=== PATIENT | male | born 1975 | race Caucasian/White ===

== ENCOUNTER 2019-01-04 10:05 | Inpatient (IN) ==
--- NOTE | 2019-01-04 11:43 | Emergency Department Note ---
Disposition Clinical Impression: Diabetic foot infection Toe ulcer due to DM Qualifiers: Diabetes mellitus type: type 2 Laterality: right Non-pressure ulcer stage: with other severity Qualified Code(s): E11.621 - Type 2 diabetes mellitus with foot ulcer Disposition: Admitted As Inpatient Condition: Good Referrals: Javier Riggins MD [Non-Partnered Physician] - General Adult HPI - General Chief complaint: ED Wound/Laceration Stated complaint: right great toe problem Time Seen by Provider: 01/04/19 11:26 Source: patient Limitations: no limitations Nursing Notes Reviewed: Yes Vital Signs Reviewed: Yes - History of Present Illness HPI Narrative: Patient is a 43 yo M who presents to the emergency department with complaints of right great toe pain. He states he has been seeing Dr. Jules for management of his right great toe diabetic foot ulcer. He has been seen 9 days ago and was placed on clindamycin with improvement in his symptoms. This morning he woke up and had significant bleeding from his wound as well as weeping and treated for the area. He also notes increase in the pain and decreased sensation in that right great toe. He notes increase in the swelling it is great toe. He otherwise denies any fever, chills, chest pain, shortness of breath, nausea, vomiting, diarrhea, abdominal pain. Pain Scale: 2 - Related Data Home Medications Medication Instructions Recorded Confirmed FLUoxetine HCl [Prozac] 500 mg PO DAILY 05/12/16 05/12/16 Gabapentin 02/15/18 HumaLOG 02/25/18 Levemir 02/25/18 Naproxen 02/25/18 Victoza 2-Victor Hugo 02/25/18 Previous Rx's Medication Instructions Recorded Amoxicillin 875 mg PO BID 10 Days #20 tablet 02/25/18 Guaifenesin/Dm/Pseudoephedrine 1 each PO TID 7 Days #21 tablet 02/25/18 [Capmist Dm Tablet] Meclizine [Antivert] 12.5 mg PO TID 4 Days #12 tablet 02/25/18 Clindamycin [Cleocin] 150 mg PO Q6HR #40 capsule 12/26/18 Allergies Allergy/AdvReac Type Severity Reaction Status Date / Time citalopram [From Celexa] AdvReac Agitated Verified 01/04/19 10:26 red dye AdvReac Vomiting Verified 01/04/19 10:26 Review of Systems: ROS per history of present illness, all other systems reviewed and negative or normal. All systems ED: reviewed and negative except as stated. Review of Systems: As Per HPI Past Medical History - Past Medical History Medical history: Reports: diabetes Surgical history: Reports: non-contributory Psychiatric history: Reports: anxiety, depression - Social History Smoking Status: Current every day smoker Smokeless Tobacco Status: Yes Alcohol use: Reports: none Drug use: Reports: none Physical Exam General: Conversant. No apparent distress. Follow commands. Appears stated age. Obese. Neck: No JVD. Trachea midline. Neck supple. Eyes: PERRL. No scleral icterus. HENT: Normocephalic and atraumatic. Moist mucus membranes. Cardiovascular: Regular rate and rhythm. Normal S1 and S2. No murmurs appreciated. Normal capillary refill. Extremities well perfused with 2+ distal pulses bilaterally. No edema. Pulmonary: Normal and equal breath sounds bilaterally, anteriorly and posteriorly. No wheezes, rales, or rhonchi. Not in respiratory distress. Speaks in full sentences. Abdomen: Soft, nondistended, and tontender. No bruits or masses. No guarding. Neuro: Alert and oriented x3. No slurred speech. No focal deficits noted. Skin: No rashes noted on visualized skin. Musculoskeletal: right foot shows dorsal erythema and warmth to the level of the ankle joint, no crepitus. the right great toe shows swelling with skin sloughing on the plantar surface with bullous weeping to the medial side. There is subcutaneous bood without evidence of fluctuance, induration, or crepitus. Distal pulses 2+ bilaterally. Psych: Normal mood. Pleasant. Makes appropriate eye contact. - General Limitations: no limitations General appearance: alert, in no apparent distress Course Course Narrative: Patient seen and evaluated. Given abrupt change overnight in symptoms and appearance will get blood cultures, BMP, CBC, as well as XR of the foot given concern for worsening infection/ - Consultations Consultation #1: Discussed case with Dr. Collins who agrees to see the patient in consultation on admission. No requests at this point. Time: 14:00 Vital Signs Temperature 99.0 F 01/04/19 10:23 Pulse Rate 81 01/04/19 10:23 Respiratory Rate 18 01/04/19 10:23 Blood Pressure 123/77 01/04/19 10:23 O2 Sat by Pulse Oximetry 96 01/04/19 10:23 Temperature 99.0 F 01/04/19 10:23 Pulse Rate 73 01/04/19 14:12 Respiratory Rate 18 01/04/19 15:36 Blood Pressure 138/76 01/04/19 15:36 O2 Sat by Pulse Oximetry 96 01/04/19 14:12 Oxygen Delivery Oxygen Delivery Room Air Medical Decision Making - MDM Narrative Medical decision making narrative: 43-year-old male with diabetes completed by peripheral neuropathy who presents emergency Department with complaints of right great toe swelling, drainage and erythema of his foot. The patient does appear to have cellulitis which has at this point failed outpatient management following a 10 day course of clindamycin . Patient has no systemic symptoms of infection including fever, chills. He is afebrile here in the emergency department. Otherwise did obtain CBC, BMP, ESR and CRP. CBC does show leukocytosis with elevation of his CRP and ESR from previous emergency department visit. X-ray of his foot shows no evidence of soft tissue gas or bony abnormalities. Given the patient had a negative CT foot just prior to this do not believe he warrants further advanced imaging at this time to evaluate further for osteomyelitis. The patient was started on Vancomycin and cefepime with blood cultures obtained prior. His pain is well controlled. Did contact Dr. Collins, orthopedist who will consult on to see the patient in the hospital and evaluate for need for I&D. Discussed case with on- call hospitalist Dr. Castañeda who agrees with plan for admission and accepts the patient to the inpatient service. Patient agrees with and understands course of treatment plan including plan for admission. All questions answered. - Medical Records Medical records reviewed: Yes I reviewed the patient's medical records. - Lab Data Lab results reviewed: Yes I reviewed the patient's lab results. Result diagrams: 01/04/19 11:57 01/04/19 11:57 Lab Results 01/04/19 01/04/19 01/04/19 Range/Units 11:57 11:57 11:57 WBC 13.9 H (4.3-11.1) K/mcL RBC 5.48 (4.19-5.50) M/mcL Hgb 17.7 H (12.9-16.9) g/dL Hct 50.3 H (37.5-50.1) % MCV 91.8 (83.0-100.0) fL MCH 32.3 (28.0-33.3) pg MCHC 35.2 (31.6-35.5) g/dL RDW 12.6 (11.5-14.5) % Plt Count 143 (140-400) K/mcL MPV 11.8 (9.4-12.4) fL Immature Gran % 0.3 (0-4) % Seg Neutrophils % 73.4 % Lymphocytes % 9.9 % Monocytes % 10.6 % Eosinophils % 5.2 % Basophils % 0.6 % Neutrophils # 10.2 H (1.6-8.9) K/mcL Lymphocytes # 1.4 (0.6-4.6) K/mcL Monocytes # 1.5 H (0.0-1.3) K/mcL Eosinophils # 0.7 H (0.0-0.6) K/mcL Basophils # 0.1 (0.0-0.2) K/mcL ESR 22 H (0-10) mm/hr Sodium 134 L (136-145) mEq/L Potassium 3.9 (3.5-5.1) mEq/L Chloride 102 (98-107) mEq/L Carbon Dioxide 26 (23-29) mEq/L BUN 13 (6-20) mg/dL Creatinine 0.72 (0.70-1.30) mg/dL Est GFR ( Amer) > 60 (> 60) Est GFR (Non-Af Amer) > 60 (> 60) BUN/Creatinine Ratio 18 (6-26) Glucose 301 H (70-105) mg/dL Est Mean Plasma Glucose mg/dl Hemoglobin A1c ( - 5.6) % Calculated Osmolality 289 (280-300) Lactic Acid (0.5-2.2) mmol/L Calcium 9.0 (8.6-10.3) mg/dL C-Reactive Protein 42 H (Less than 10) mg/L 01/04/19 01/04/19 Range/Units 11:57 12:03 WBC (4.3-11.1) K/mcL RBC (4.19-5.50) M/mcL Hgb (12.9-16.9) g/dL Hct (37.5-50.1) % MCV (83.0-100.0) fL MCH (28.0-33.3) pg MCHC (31.6-35.5) g/dL RDW (11.5-14.5) % Plt Count (140-400) K/mcL MPV (9.4-12.4) fL Immature Gran % (0-4) % Seg Neutrophils % % Lymphocytes % % Monocytes % % Eosinophils % % Basophils % % Neutrophils # (1.6-8.9) K/mcL Lymphocytes # (0.6-4.6) K/mcL Monocytes # (0.0-1.3) K/mcL Eosinophils # (0.0-0.6) K/mcL Basophils # (0.0-0.2) K/mcL ESR (0-10) mm/hr Sodium (136-145) mEq/L Potassium (3.5-5.1) mEq/L Chloride (98-107) mEq/L Carbon Dioxide (23-29) mEq/L BUN (6-20) mg/dL Creatinine (0.70-1.30) mg/dL Est GFR ( Amer) (> 60) Est GFR (Non-Af Amer) (> 60) BUN/Creatinine Ratio (6-26) Glucose (70-105) mg/dL Est Mean Plasma Glucose 203 mg/dl Hemoglobin A1c 8.7 H ( - 5.6) % Calculated Osmolality (280-300) Lactic Acid 1.4 (0.5-2.2) mmol/L Calcium (8.6-10.3) mg/dL C-Reactive Protein (Less than 10) mg/L - Radiology Data Radiology results reviewed: Yes I reviewed the patient's radiology results. Foot X-Ray 01/04/19 11:41 IMPRESSION: 1. No acute abnormality. D/ / Chance Manzano MD / Chance Manzano MD Interpreting Provider: Chance Manzano MD
[2019-01-04] MEDS ORDERED: Cefepime HCl 2,000 MG in Water for inj. (sterile) 20 ML 20 ML IVP ONE (12:25)
[2019-01-04 12:31] LABS: BUN/Creatinine Ratio 18 (6-26); Blood Urea Nitrogen 13 mg/dL (6-20); C-Reactive Protein 42 mg/L (Less than 10); Carbon Dioxide 26 mEq/L (23-29); Chloride 102 mEq/L (98-107); Glucose 301 mg/dL (70-105); Osmolality,Calculated 289 (280-300); Potassium 3.9 mEq/L (3.5-5.1); Sodium 134 mEq/L (136-145); eGFR For Non-African Americans > 60 (> 60)
[2019-01-04 13:00] LABS: Basophils # 0.1 K/mcL (0.0-0.2); Basophils % 0.6 %; Eosinophils # 0.7 K/mcL (0.0-0.6); Eosinophils % 5.2 %; Hematocrit 50.3 % (37.5-50.1); Hemoglobin 17.7 g/dL (12.9-16.9); Immature Granulocytes % 0.3 % (0-4); Lymphocytes # 1.4 K/mcL (0.6-4.6); Lymphocytes % 9.9 %; Mean Corpuscular HGB Conc 35.2 g/dL (31.6-35.5); Mean Corpuscular Hemoglobin 32.3 pg (28.0-33.3); Mean Corpuscular Volume 91.8 fL (83.0-100.0); Mean Platelet Volume 11.8 fL (9.4-12.4); Monocytes # 1.5 K/mcL (0.0-1.3); Monocytes % 10.6 %; Neutrophils # 10.2 K/mcL (1.6-8.9); Platelet Count 143 K/mcL (140-400); Red Blood Count 5.48 M/mcL (4.19-5.50); Red Cell Distribution Width 12.6 % (11.5-14.5); Segmented Neutrophils % 73.4 %
--- NOTE | 2019-01-04 13:12 | Emergency Department Note ---
Disposition Clinical Impression: Toe ulcer due to DM, Diabetic foot infection Disposition: Admitted As Inpatient Condition: Fair Referrals: Javier Riggins MD [Primary Care Provider] - Forms: ED Satisfaction Letter General Adult HPI - General Chief complaint: ED Wound/Laceration Stated complaint: right great toe problem Time Seen by Provider: 01/04/19 11:26 Source: patient Limitations: no limitations - History of Present Illness Pain Scale: 2 - Related Data Home Medications Medication Instructions Recorded Confirmed FLUoxetine HCl [Prozac] 500 mg PO DAILY 05/12/16 05/12/16 Gabapentin 02/15/18 HumaLOG 02/25/18 Levemir 02/25/18 Naproxen 02/25/18 Victoza 2-Victor Hugo 02/25/18 Previous Rx's Medication Instructions Recorded Amoxicillin 875 mg PO BID 10 Days #20 tablet 02/25/18 Guaifenesin/Dm/Pseudoephedrine 1 each PO TID 7 Days #21 tablet 02/25/18 [Capmist Dm Tablet] Meclizine [Antivert] 12.5 mg PO TID 4 Days #12 tablet 02/25/18 Clindamycin [Cleocin] 150 mg PO Q6HR #40 capsule 12/26/18 Allergies Allergy/AdvReac Type Severity Reaction Status Date / Time citalopram [From Celexa] AdvReac Agitated Verified 01/04/19 10:26 red dye AdvReac Vomiting Verified 01/04/19 10:26 Past Medical History - Past Medical History Medical history: Reports: diabetes Surgical history: Reports: non-contributory Psychiatric history: Reports: anxiety, depression - Social History Smoking Status: Current every day smoker Smokeless Tobacco Status: Yes Alcohol use: Reports: none Drug use: Reports: none Physical Exam - General Limitations: no limitations General appearance: alert, in no apparent distress Course Vital Signs Temperature 99.0 F 01/04/19 10:23 Pulse Rate 81 01/04/19 10:23 Respiratory Rate 18 01/04/19 10:23 Blood Pressure 123/77 01/04/19 10:23 O2 Sat by Pulse Oximetry 96 01/04/19 10:23 Temperature 99.0 F 01/04/19 10:23 Pulse Rate 82 01/04/19 11:30 Respiratory Rate 16 01/04/19 11:30 Blood Pressure 131/77 01/04/19 11:30 O2 Sat by Pulse Oximetry 96 01/04/19 11:30 Oxygen Delivery Oxygen Delivery Room Air Medical Decision Making - Lab Data Result diagrams: 01/04/19 11:57 01/04/19 11:57 Lab Results 01/04/19 01/04/19 01/04/19 Range/Units 11:57 11:57 11:57 WBC 13.9 H (4.3-11.1) K/mcL RBC 5.48 (4.19-5.50) M/mcL Hgb 17.7 H (12.9-16.9) g/dL Hct 50.3 H (37.5-50.1) % MCV 91.8 (83.0-100.0) fL MCH 32.3 (28.0-33.3) pg MCHC 35.2 (31.6-35.5) g/dL RDW 12.6 (11.5-14.5) % Plt Count 143 (140-400) K/mcL MPV 11.8 (9.4-12.4) fL Immature Gran % 0.3 (0-4) % Seg Neutrophils % 73.4 % Lymphocytes % 9.9 % Monocytes % 10.6 % Eosinophils % 5.2 % Basophils % 0.6 % Neutrophils # 10.2 H (1.6-8.9) K/mcL Lymphocytes # 1.4 (0.6-4.6) K/mcL Monocytes # 1.5 H (0.0-1.3) K/mcL Eosinophils # 0.7 H (0.0-0.6) K/mcL Basophils # 0.1 (0.0-0.2) K/mcL ESR 22 H (0-10) mm/hr Sodium 134 L (136-145) mEq/L Potassium 3.9 (3.5-5.1) mEq/L Chloride 102 (98-107) mEq/L Carbon Dioxide 26 (23-29) mEq/L BUN 13 (6-20) mg/dL Creatinine 0.72 (0.70-1.30) mg/dL Est GFR ( Amer) > 60 (> 60) Est GFR (Non-Af Amer) > 60 (> 60) BUN/Creatinine Ratio 18 (6-26) Glucose 301 H (70-105) mg/dL Calculated Osmolality 289 (280-300) Lactic Acid (0.5-2.2) mmol/L Calcium 9.0 (8.6-10.3) mg/dL C-Reactive Protein 42 H (Less than 10) mg/L 01/04/19 Range/Units 11:57 WBC (4.3-11.1) K/mcL RBC (4.19-5.50) M/mcL Hgb (12.9-16.9) g/dL Hct (37.5-50.1) % MCV (83.0-100.0) fL MCH (28.0-33.3) pg MCHC (31.6-35.5) g/dL RDW (11.5-14.5) % Plt Count (140-400) K/mcL MPV (9.4-12.4) fL Immature Gran % (0-4) % Seg Neutrophils % % Lymphocytes % % Monocytes % % Eosinophils % % Basophils % % Neutrophils # (1.6-8.9) K/mcL Lymphocytes # (0.6-4.6) K/mcL Monocytes # (0.0-1.3) K/mcL Eosinophils # (0.0-0.6) K/mcL Basophils # (0.0-0.2) K/mcL ESR (0-10) mm/hr Sodium (136-145) mEq/L Potassium (3.5-5.1) mEq/L Chloride (98-107) mEq/L Carbon Dioxide (23-29) mEq/L BUN (6-20) mg/dL Creatinine (0.70-1.30) mg/dL Est GFR ( Amer) (> 60) Est GFR (Non-Af Amer) (> 60) BUN/Creatinine Ratio (6-26) Glucose (70-105) mg/dL Calculated Osmolality (280-300) Lactic Acid 1.4 (0.5-2.2) mmol/L Calcium (8.6-10.3) mg/dL C-Reactive Protein (Less than 10) mg/L Attestation Statement - Attestation Attestation: I have seen this patient with the resident physician, I have personally evaluated this patient. I had reviewed the chart and document dictation by the resident physician and aM in agreement with the information documented by the resident physician. Please see documentation by the resident physician for complete chart including past medical history, family medical history, review of systems, current history and physical and laboratory and imaging studies. I was present for all procedures, provided direct supervision for all proce dures, was present for the entirety of all procedures and provided direct guidance during the procedures. Please see documentation by the resident physician for any procedures performed. Patient presents emergency Department with chief complaint of right great toe problem. This patient was seen in the emergency department about 8 days ago, in fact by myself, for a diabetic toe infection, he underwent laboratory studies and a CT scan of his foot at that time which were unremarkable including sed rate CRP CT scan CBC basic metabolic profile. He was given IV clindamycin in the emergency department and discharged home on oral clindamycin and reports that he followed up with his obstetrics specialist and toe/metabolic specialist and was actually significantly improving, in fact states that yesterday his foot looked great, he states that when he woke up this morning he looked down in his foot and noticed that his right great toe with significant only swollen weeping with large bruising and blistering appearance to it, and he had return of redness to the top of his foot he states typically his foot hurts but now it feels almost like his great toe was asleep. He denies fevers or chills he denies any other acute concerns, he just completed clindamycin. On physical examination, his right great toe is significantly swollen, with ruptured blistering, with hemorrhagic blistering of the toe, extending from the plantar aspect of the great toe medially around the great toe, with weeping of serous fluid, with some mild orange tint to it, there is some very mild erythema on the dorsum of the foot, without circumferential erythema or swelling onto the plantar aspect of the foot. He is able to wiggle his toe, it is very mildly tender. The right great toe is significantly swollen compared to the left side. There is no associated lymphangitis there is no palpable crepitus Basic laboratory studies including CBC blood cultures and lactic acid basic metabolic profile sedimentation rate and CRP were ordered. CRP hand sedimentation rate are both significantly elevated since previous. X-ray revealed no acute bony pathology, no obvious soft tissue gas. Patient was given IV cefepime and IV vancomycin. Podiatry was consulted as I feel this patient likely will require surgical debridement of his toe. He has no evidence to suggest necrotizing fasciitis there has been no advancement of the swelling redness or bruising here in the emergency department during his evaluation here, however I am highly concerned about the appearance of his great toe in regards to acute diabetic foot infection
--- NOTE | 2019-01-04 14:28 | Internal Med History&Physical ---
Date of Encounter: 01/04/19 Time of Encounter: 14:19 Internal Medicine - H&P: HPI Chief complaint: Infected diabetic foot ulcer Admitted From: Emergency Dept History of present illness: Pawan Hutson is a 43 M w hx DM2 c/b neuropathy, morbid obesity, smoker, anx/dep, who p/w R great toe pain. Pain began overnight and is constant. He usually doesn't feel much in his feet due to neuropathy but noted tenderness and discomfort since yesterday. He does have a known R great toe ulcer for which he follows with local podiatry Dr Jules for wound care, and was seen in ED 9 days ago for infectious symptoms which improved on clindamycin. He took his last dose of clindamycin either yesterday or the day before. Says his home health RN wrapped his foot two days ago and it looked much better, no redness or swelling, and no discomfort. Currently, his pain is associated with increased bleeding from the toe ulcer but also fluid seeping out of the top of his toe also accompanied by blisters. He notes swelling and redness that extend up to the foot. He denies F/C/N/V/D, no CP or SOB. In the ED, pt HR 80, RR 18, SBP 120s, T'99.0. On exam has warmth and erythema on toe at site of foot extending to foot. Labs show WBC 14, Hct 50, Na 134, Glucose 300, lactate 1.4, CRP 42. An XR of his R foot was unremarkable for any abn including no osseous abn, and last week a CT of his foot showed only inflammatory changes consistent with cellulitis of his great toe. Podiatry was consulted and will follow the patient. Blood cultures were obtained. He was gi claudia dose of vanc and cefepime and admitted for further management. Past medical, surgical, social, and family histories reviewed and updated as below. Past Med Surg Social Fam HX - Past Medical History Medical history: diabetes Psychiatric history: anxiety, depression - Past Surgical History Surgical History: non-contributory Additional surgical history: deviated septum repaired. cyst removed from left fourth digit - Social History Smoking Status: Current every day smoker Smokeless Tobacco Status: Yes Alcohol use: none Drug use: none - Family History Father Adopted: No Living Status: Hx Family Cardiac Disorders: Yes Hx Family Respiratory Disorders: No Hx Family Cancer: Yes Hx Family GI Disorders: No Hx Family Endocrine Disorder: No Hx Family Neuromuscular Disorders: No Hx Family Neurologic Disorders: No Hx Family HEENT Disorders: No Hx Family Autoimmune Disorders: No Mother Adopted: No Living Status: Still Living Hx Family Cardiac Disorders: No Hx Family Respiratory Disorders: No Hx Family Cancer: Yes Hx Family GI Disorders: No Hx Family Endocrine Disorder: No Hx Family Neuromuscular Disorders: No Hx Family Neurologic Disorders: No Hx Family HEENT Disorders: No Hx Family Autoimmune Disorders: No Internal Medicine - H&P: Meds FLUoxetine HCl [Prozac] 500 mg PO DAILY 05/12/16 [History] Gabapentin 02/15/18 [History] Amoxicillin 875 mg PO BID 10 Days #20 tablet 02/25/18 [Rx] Guaifenesin/Dm/Pseudoephedrine [Capmist Dm Tablet] 1 each PO TID 7 Days #21 tablet 02/25/18 [Rx] HumaLOG 02/25/18 [History] Levemir 02/25/18 [History] Meclizine [Antivert] 12.5 mg PO TID 4 Days #12 tablet 02/25/18 [Rx] Naproxen 02/25/18 [History] Victoza 2-Victor Hugo 02/25/18 [History] Clindamycin [Cleocin] 150 mg PO Q6HR #40 capsule 12/26/18 [Rx] Allergy/AdvReac Type Severity Reaction Status Date / Time citalopram [From Celexa] AdvReac Agitated Verified 01/04/19 10:26 red dye AdvReac Vomiting Verified 01/04/19 10:26 All Systems PM: A 10-system review of systems was performed and is negative for pertinent findings except as documented above in the HPI. - Constitutional Vitals: Temp Pulse Resp BP Pulse Ox 99.0 F 73 18 120/77 96 01/04/19 10:23 01/04/19 14:12 01/04/19 14:12 01/04/19 14:12 01/04/19 14:12 Exam: General: NAD, good eye contact, morbidly obese, nontoxic, disheveled Head: Atraumatic, normocephalic. Face symmetric Eyes: EOMI, sclerae anicteric ENT: Mucous membranes moist. Trachea midline. Thoracic: No visible chest wall deformities. Normal breath sounds b/l, no wheezing or crackles. Cardio: Normal S1 and S2, regular rate and rhythm, no murmurs. Distant heart sounds. Abdomen: Soft, nontender, nondistended. Obese. Neuro: Awake, fully oriented. Good memory, concentration, attention. Speech fluent. CN II-XII grossly intact. Strength 5/5 in b/l UE and LE Extremities: Warm, well perfused. No clubbing, cyanosis. Skin: R great toe w inferior chronic ulceration, now with skin sloughing, fluctuance of medial and superior aspects of toe with bruising, also punctate areas of serosanguinous weeping scattered across dorsum of toe Internal Med - H&P Results - Labs CBC & Chem 7: 01/04/19 11:57 01/04/19 11:57 Labs: Short CBC 01/04/19 Range/Units 11:57 WBC 13.9 H (4.3-11.1) K/mcL Hgb 17.7 H (12.9-16.9) g/dL Hct 50.3 H (37.5-50.1) % Plt Count 143 (140-400) K/mcL Neutrophils # 10.2 H (1.6-8.9) K/mcL BMP 01/04/19 11:57 Sodium 134 L Potassium 3.9 Chloride 102 Carbon Dioxide 26 BUN 13 Creatinine 0.72 Glucose 301 H Calcium 9.0 - Impressions ITS Impressions Foot X-Ray 01/04/19 11:41 IMPRESSION: 1. No acute abnormality. D/ / Chance Manzano MD / Chance Manzano MD Interpreting Provider: Chance Manzano MD - Summary of Assessment and Plan Summary of Assessment and Plan: Pawan Hutson is a 43 M w hx DM2 c/b neuropathy, morbid obesity, smoker, anx/dep, chronic R great toe ulcer, who p/w R great toe pain and erythema extending proximally, leukocytosis, and elevated CRP, concerning for infected diabetic foot ulcer. Infected diabetic foot ulcer: just finished clindamycin monotherapy with worsening after initial improvement, concerning for inducible resistance to clindamycin. XR showing no osseous abn, CRP elevated only to 40, and this is relatively acute, and with negative CT last week, low suspicion for OM. - BCx x2 pending - continue empiric vanc/cefepime for now until source control - consider eventual de-escalation to keflex 500 qid and bactrim ds 2 tabs bid - podiatry consult, suspect will need I&D DM2 c/b neuropathy: w hyperglycemia, continue home levemir, use SSI Neuropathy: home gabapentin ORION: cpap qhs Morbid Obesity: BMI 44 Smoker: nicotine patch offered Anx/dep: home prozac PPx: lovenox FEN: ADA, no MIVF Lines: PIV Consults: Podiatry Code: Full Dispo: patient requires inpatient eval and management at this time. Anticipate 2-3 days. Will be homegoing
[2019-01-04] MEDS ORDERED: Ondansetron 4 MG/2 ML VIAL IVP PRN (14:38)
[2019-01-04] MEDS ORDERED: Nicotine 21 MG PATCH.TD24 TD PRN (15:04)
[2019-01-04] MEDS ORDERED: Gadolinium Contrast Agent (WT Based) IV PRN (16:04)
--- NOTE | 2019-01-04 16:08 | Podiatry Consult Note ---
Date of Encounter: 01/04/19 Time of Encounter: 14:55 Assessment and Plan (1) Diabetic foot infection Current visit: Yes Status: Acute Assessment: -Edema, erythema, and discoloration noted right hallux circumferentially. No obvious open ulcers. Erythema extends to dorsal aspect of foot, demarcation line placed to monitor. Serous drainage noted from toe and small areas of blisters noted dorsal aspect of toe. Callused area noted distal plantar aspect. Obvious fluid noted under skin. No fluctuance. Xerosis noted. -2/4 PT/DP pulse RLE -Cap refill less than 3 seconds -No pain with calf squeeze -WBC 13.9 -ESR 22, CRP 42 -Per patient's last Hgb A1c at [facility] was 11.7 -Right foot x-ray showed no evidence of abnormality -Rt CT of foot from 9 days ago showed subcutaneous soft tissue swelling, greater along the dorsal aspect of the foot and along the plantar aspect of the great toe. Findings most compatible with cellulitis. Definite ulceration is not identified. No soft tissue gas is seen. No focal fluid collections are identified. No CT evidence of osteomyelitis is identified. Thickening of the distal Achilles tendon and the central cord of the plantar aponeurosis. Correlation with clinical evidence of Achilles tendinopathy and plantar fascitis. -Patient does vape Plan: -Wound culture and anaerobic cultures obtained and left at bedside for nursing staff to label and send to lab -Site cleaned with sterile .9NS and pat dry -Painted with betadine -Covered with 4x4 dry gauze and Kerlix -ABIs and TCP O2 -MRI right foot -Hgb A1c -Discussed with patient that he may need an I&D of the right hallux and the potential for amputation of the great toe -Spoke with patient about the need for him to stop tobacco use (vape) and the importance of getting his A1c under control <7 and blood sugars <150 to aide in wound healing -Heel medix boots to lower extremities at all times while in bed, nursing to obtain from central History of Present Illness HPI: Mr. Hutson is a 43 year old male who presents to the emergency room due to right great toe pain, edema, and drainage. Patient does have a past medical history of diabetes with neuropathy, venous insufficiency, sleep apnea, and spinal stenosis. Patient states the pain started last night and he noticed drainage and bleeding early this am. Patient reports the wound started one year ago after a callus was pulled off. Since that time he has been treated in the [facility] at [facility] and recently moved to the area and started seeing Dr. Jules in the [facility] here at [place]. He reports one week ago he was evaluated by Dr. Jules and the symptoms of infection had improved. He reports he took his last dose of Clindamycicn yesterday. He also reports that [facility] evaluated him two days ago and the toe was a lot better and he denied any erythema, edema, or pain at that time. Patient denies any chest pain, shortness of breath, or calf pain. He denies any fever, chills, nausea, vomiting, or diarrhea. His temperature upon admission to ER was 99.0. A CBC was obtained and WBC 13.9. ESR 22 and CRP 42. X-ray of right foot showed no evidences of acute abnormality. CT last week showed subcutaneous soft tissue swelling, greater along the dorsal aspect of the foot and along the plantar aspect of the great toe. Findings most compatible with cellulitis. Definite ulceration is not identified. No soft tissue gas is seen. No focal fluid collections are identified. No CT evidence of osteomyelitis is identified. Thickening of the distal Achilles tendon and the central cord of the plantar aponeurosis. Correlation with clinical evidence of Achilles tendinopathy and plantar fascitis. Blood cultures were obtained. He was started on vacnomycin and cefepime while in the ER and admitted for further management. Podiatry was consulted due to the edema, erythema, and drainage from the right hallux. Patient does report he vapes and denies any alcohol or illicit drug use. Past Med Surg Social Fam HX - Past Medical History Medical history: diabetes Psychiatric history: anxiety, depression - Past Surgical History Surgical History: non-contributory Additional surgical history: deviated septum repaired. cyst removed from left fourth digit - Social History Smoking Status: Current every day smoker Smokeless Tobacco Status: Yes Alcohol use: none Drug use: none - Family History Father Adopted: No Living Status: Hx Family Cardiac Disorders: Yes Hx Family Respiratory Disorders: No Hx Family Cancer: Yes Hx Family GI Disorders: No Hx Family Endocrine Disorder: No Hx Family Neuromuscular Disorders: No Hx Family Neurologic Disorders: No Hx Family HEENT Disorders: No Hx Family Autoimmune Disorders: No Mother Adopted: No Living Status: Still Living Hx Family Cardiac Disorders: No Hx Family Respiratory Disorders: No Hx Family Cancer: Yes Hx Family GI Disorders: No Hx Family Endocrine Disorder: No Hx Family Neuromuscular Disorders: No Hx Family Neurologic Disorders: No Hx Family HEENT Disorders: No Hx Family Autoimmune Disorders: No Medications and Allergies FLUoxetine HCl [Prozac] 500 mg PO DAILY 05/12/16 [History] Gabapentin 02/15/18 [History] Guaifenesin/Dm/Pseudoephedrine [Capmist Dm Tablet] 1 each PO TID 7 Days #21 tablet 02/25/18 [Rx] HumaLOG 02/25/18 [History] Levemir 02/25/18 [History] Meclizine [Antivert] 12.5 mg PO TID 4 Days #12 tablet 02/25/18 [Rx] Naproxen 02/25/18 [History] RX: Amoxicillin 875 mg PO BID 10 Days #20 tablet 02/25/18 [Rx] Victoza 2-Victor Hugo 02/25/18 [History] RX: Clindamycin [Cleocin] 150 mg PO Q6HR #40 capsule 12/26/18 [Rx] Allergy/AdvReac Type Severity Reaction Status Date / Time citalopram [From Celexa] AdvReac Agitated Verified 01/04/19 10:26 red dye AdvReac Vomiting Verified 01/04/19 10:26 All Systems Reviewed: The remainder of the systems were reviewed and are negative Review of systems: As per HPI. - Constitutional Constitutional: no fever(s) - Cardiovascular Cardiovascular: no chest pain - Respiratory Respiratory: no dyspnea Physical Exam - Constitutional Vitals: Temp Pulse Resp BP Pulse Ox 99.0 F 73 18 138/76 96 01/04/19 10:23 01/04/19 14:12 01/04/19 15:36 01/04/19 15:36 01/04/19 14:12 Exam: Constitutional: Alert and oriented x 3, no acute distress noted, obese male Vascular: 1/4 PT/DP LLE, 2/4 PT/DP RLE, cap refill less than 3 seconds, skin warm from tibia to toes, no pain with calf squeeze bilaterally Neurological: Diminished protective sensation, normal plantar response, normal proprioception dorsiflexion/plantar flexion Dermatological: Edema, erythema, and discoloration noted right hallux circumferentially. No obvious open ulcers. Erythema extends to dorsal aspect of foot, demarcation line placed to monitor. Serous drainage noted from toe and small areas of blisters noted dorsal aspect of toe. Callused area noted distal plantar aspect. Obvious fluid noted under skin. No fluctuance. Xerosis noted. Musculoskeletal: 12/29 muscle strength and normal muscle tone - Expanded Lower Extremities Exam 1 - Edema, erythema, blisters with serous drainage 1 - Callused area distal aspect, discoloration, edema, and erythema noted Results - Labs Result Diagrams: 01/04/19 11:57 01/04/19 11:57 Labs: Abnormal lab results WBC 13.9 K/mcL (4.3-11.1) H 01/04/19 11:57 Hgb 17.7 g/dL (12.9-16.9) H 01/04/19 11:57 Hct 50.3 % (37.5-50.1) H 01/04/19 11:57 Neutrophils # 10.2 K/mcL (1.6-8.9) H 01/04/19 11:57 Monocytes # 1.5 K/mcL (0.0-1.3) H 01/04/19 11:57 Eosinophils # 0.7 K/mcL (0.0-0.6) H 01/04/19 11:57 ESR 22 mm/hr (0-10) H 01/04/19 11:57 Sodium 134 mEq/L (136-145) L 01/04/19 11:57 Glucose 301 mg/dL (70-105) H 01/04/19 11:57 C-Reactive Protein 42 mg/L (Less than 10) H 01/04/19 11:57 H & H 01/04/19 Range/Units 11:57 Hgb 17.7 H (12.9-16.9) g/dL Hct 50.3 H (37.5-50.1) % All other labs normal. - Diagnostic results Ankle/Foot x-ray: report reviewed (No acute abnormality ) Consult Discharge Plan - Plan Referrals: Javier Riggins MD [Primary Care Provider] -
[2019-01-04 16:29] LABS: Estimated Average Glucose 203 mg/dl; Hemoglobin A1C 8.7 %
[2019-01-04] MEDS ORDERED: Dextrose Gel 15 GM/37.5 ML TUBE PO PRN ×2 (17:24)
[2019-01-04] MEDS ORDERED: D5% in Water 1,000 ML IVC PRN (17:24)
[2019-01-04] MEDS ORDERED: *HR* Dextrose 50 % in Water (Syg) 50 ML SYRINGE IVP PRN (17:24)
[2019-01-04] MEDS ORDERED: Insulin LISPRO 300 UNITS/3 ML VIAL SQ SCH (21:00)
[2019-01-04] MEDS: Cefepime HCl 2,000 MG in Water for inj. (sterile) 20 ML 20 ML IVP SCH (23:57)
[2019-01-05] MEDS ORDERED: *HR* OxyCODONE Immed Rel 5 MG TABLET PO ONE (00:05)
[2019-01-05] MEDS ORDERED: Ibuprofen 600 MG TABLET PO ONE (00:08)
[2019-01-05] MEDS: Acetaminophen 325 MG TABLET PO PRN ×2 (02:47→11:32)
[2019-01-05 05:30] LABS: Hematocrit 45.7 % (37.5-50.1); Mean Corpuscular HGB Conc 35.2 g/dL (31.6-35.5); Mean Corpuscular Hemoglobin 32.4 pg (28.0-33.3); Mean Platelet Volume 11.5 fL (9.4-12.4); Platelet Count 115 K/mcL (140-400); Red Blood Count 4.97 M/mcL (4.19-5.50); Red Cell Distribution Width 13.1 % (11.5-14.5)
[2019-01-05 05:31] LABS: Hemoglobin 16.1 g/dL (12.9-16.9)
[2019-01-05 05:53] LABS: BUN/Creatinine Ratio 15 (6-26); Blood Urea Nitrogen 13 mg/dL (6-20); Calcium 8.6 mg/dL (8.6-10.3); Carbon Dioxide 25 mEq/L (23-29); Chloride 103 mEq/L (98-107); Glucose 290 mg/dL (70-105); Osmolality,Calculated 293 (280-300); Potassium 3.9 mEq/L (3.5-5.1); Sodium 136 mEq/L (136-145); Troponin I 0.06 ng/mL (< 0.04); eGFR For Non-African Americans > 60 (> 60)
[2019-01-05] MEDS: *HR* Enoxaparin 40 MG/0.4 ML SYRINGE SQ SCH (06:48)
[2019-01-05] MEDS ORDERED: Insulin LISPRO 300 UNITS/3 ML VIAL SQ SCH ×4 (07:30→21:00)
[2019-01-05] MEDS: Cefepime HCl 2,000 MG in Water for inj. (sterile) 20 ML 20 ML IVP SCH ×2 (08:36→16:37)
[2019-01-05 09:01] LABS: Acinetobacter baumannii by PCR Not Detected (Not Detect); Candida albicans by PCR Not Detected (Not Detect); Candida glabrata by PCR Not Detected (Not Detect); Candida krusei by PCR Not Detected (Not Detect); Candida parapsilosis by PCR Not Detected (Not Detect); Candida tropicalis by PCR Not Detected (Not Detect); Enterobacter cloacae Cmplx PCR Not Detected (Not Detect); Enterobacteriaceae by PCR Not Detected (Not Detect); Enterococcus by PCR Not Detected (Not Detect); Escherichia coli by PCR Not Detected (Not Detect); Klebsiella oxytoca by PCR Not Detected (Not Detect); Klebsiella pneumoniae by PCR Not Detected (Not Detect); Proteus by PCR Not Detected (Not Detect); Pseudomonas aeruginosa by PCR Not Detected (Not Detect); Serratia marcescens by PCR Not Detected (Not Detect); Staphylococcus aureus by PCR DETECTED (Not Detect); Streptococcus agalactiae(B)PCR Not Detected (Not Detect); Streptococcus by PCR Not Detected (Not Detect); Streptococcus pneumoniae PCR Not Detected (Not Detect); Streptococcus pyogenes (A) PCR Not Detected (Not Detect)
--- NOTE | 2019-01-05 09:01 | Internal Med Progress Note ---
<Karie Jovel N - Last Filed: 01/05/19 16:02> Hospitalist Progress Note - Encounter Date of Encounter: 01/05/19 Time of Encounter: 09:00 - Subjective Interval History: Mr. Hutson is a 43-year old male who was admitted to the hospital for management of worsening right great toe ulcer. Patient states that he has been dealing with this ulcer for approximately one year, but had development of new tenderness and discomfort over the last few days. On evaluation today, patient endorses continued pain in his right great toe, as well as along the inside of his right thigh. He denies any fevers, chills, or body aches. Nursing staff reports no acute overnight events. - Exam Vitals: Temp Pulse Resp BP Pulse Ox 97.3 F L 85 16 97/61 96 01/05/19 07:00 01/05/19 07:00 01/05/19 07:00 01/05/19 07:00 01/05/19 07:00 Exam: GENERAL: Well-developed, well-nourished adult male in no acute distress. HEENT: Atraumatic and normocephalic. CARDIOVASCULAR: Distant heart sounds secondary to body habitus. Regular rate and rhythm. S1 and S2 present. No murmurs, gallops, or rubs. RESPIRATORY: Clear to auscultation bilaterally. Chest rises and falls symmetrically without accessory muscle use. GASTROINTESTINAL: Abdomen is soft, nontender, nondistended. EXTREMITIES: No clubbing, cyanosis, or edema. Right foot is wrapped in clean dressings. Palpable muscle spasm along inside of right thigh. SKIN: Warm, dry, and intact. NEUROLOGIC: Alert and oriented x3. Patient is cooperative with exam and answers questions appropriately. No apparent focal deficits. PSYCHIATRIC: Appropriate mood and affect. - Assessment and Plan (1) Sepsis Current Visit: Yes Status: Acute Assessment and Plan: Patient initially met sepsis criteria with elevated temperature of 101.4F, HR 96bpm, leukocytosis with WBC 13.9, and identified infectious source of diabetic foot ulcer. Initial lactic acid was WNL at 1.4. Patient was not toxic-appearing or hypotensive, and was therefore not administered initial fluid boluses. Blood cultures were obtained, and patient was started on broad-spectrum antibiotic therapy with vancomycin and cefepime. Initial blood culture results are significant for growth of gram-positive cocci 1 set. Serology significant for detection of this Staph aureus by PCR. Plan: - Additional blood cultures obtained today 2 sets. Will repeat cultures with morning laboratory studies. - Repeat and trend daily CBC. - Continue broad-spectrum antibiotic therapy with vancomycin and zosyn. (2) Bacteremia Current Visit: Yes Status: Acute Assessment and Plan: Initial blood cultures significant for growth of gram-positive cocci 1 set. Serology is significant for detection of S. aureus via PCR. - Repeat blood cultures obtained and pending. Will obtain additional blood cultures with morning laboratory draw. - Continue antibiotic therapy with vancomycin and cefepime. (3) Diabetic foot infection Current Visit: Yes Status: Acute Assessment and Plan: Likely source of sepsis and bacteremia. MRI of the right foot was notable for shallow soft tissue ulcerations of the first toe, with no sinus tract or drainable fluid collection. First toe and dorsal foot or foot subcutaneous edema compatible with cellulitis was noted. Patient was evaluated by podiatry yesterday, and wound cultures were obtained. Per podiatry note this afternoon, and plan for a trip to [place] tomorrow for I&D of nonviable soft tissue and possible partial first ray amputation. - Continue broad-spectrum antibiotic therapy with vancomycin and cefepime. - Wound cultures pending. - Infectious disease consult placed for antibiotic recommendations. - Appreciate ongoing podiatry recommendations and assistance with management of this problem. (4) Diabetes mellitus type 2, insulin dependent Current Visit: Yes Status: Acute Assessment and Plan: History of T2DM with use of insulin at home. Hemoglobin A1c is elevated at 8.7. - Accuchecks ACHS. - Increase SSI to high-dose corrective ACHS. - Start basal insulin 15 units QHS. (5) Elevated troponin Current Visit: Yes Status: Acute Assessment and Plan: Elevated troponin of 0.06, with no change on repeat troponin. Patient denies any chest pain, shortness of breath, or other cardiac symptoms. - Continue telemetry monitoring and close clinical evaluation. (6) DVT prophylaxis Current Visit: Yes Status: Acute Assessment and Plan: - Lovenox 40mg SQ. - Time Spent with Patient Total time spent is greater than 50% in coordination of care (as documented) at patient's floor/unit and/or counseling patient: Internal Medicine: Result - Labs CBC & Chem 7: 01/05/19 05:00 01/05/19 05:00 Labs: Short CBC 01/04/19 01/05/19 Range/Units 11:57 05:00 WBC 13.9 H 14.3 H (4.3-11.1) K/mcL Hgb 17.7 H 16.1 D (12.9-16.9) g/dL Hct 50.3 H 45.7 (37.5-50.1) % Plt Count 143 115 L (140-400) K/mcL Neutrophils # 10.2 H (1.6-8.9) K/mcL BMP 01/04/19 01/05/19 11:57 05:00 Sodium 134 L 136 Potassium 3.9 3.9 Chloride 102 103 Carbon Dioxide 26 25 BUN 13 13 Creatinine 0.72 0.84 Glucose 301 H 290 H Calcium 9.0 8.6 Cardiac Enzymes 01/05/19 Range/Units 05:00 Troponin I 0.06 H* (< 0.04) ng/mL - Impressions Impressions Foot X-Ray 01/04/19 11:41 IMPRESSION: 1. No acute abnormality. D/ / Chance Manzano MD / Chance Manzano MD Interpreting Provider: Chance Manzano MD Foot MRI 01/04/19 16:04 IMPRESSION: 1. No osteomyelitis. 2. Shallow soft tissue ulcerations of the 1st toe. No sinus tract or drainable fluid collection. 1st toe and dorsal forefoot subcutaneous edema compatible with cellulitis. 3. Mild 1st MTP degenerative changes. 4. Moderate edema throughout the intrinsic musculature of the foot compatible with diabetic myopathy versus myositis versus early denervation. D/ / Abdon Patricia MD / Abdon Patricia MD Interpreting Provider: Abdon Patricia MD Consult Discharge Plan - Plan Referrals: Javier Riggins MD [Primary Care Provider] - <Marques Fletcher - Last Filed: 01/05/19 18:42> Hospitalist Progress Note - Encounter Date of Encounter: 01/05/19 - Exam Vitals: Temp Pulse Resp BP Pulse Ox 98.3 F 80 16 118/72 96 01/05/19 14:17 01/05/19 14:17 01/05/19 14:17 01/05/19 14:17 01/05/19 14:17 - Assessment and Plan (1) Diabetes Current Visit: Yes Status: Acute (2) Diabetic foot infection Current Visit: Yes Status: Acute (3) Sepsis Current Visit: Yes Status: Suspected (4) Bacteremia Current Visit: Yes Status: Acute (5) Diabetes mellitus type 2, insulin dependent Current Visit: Yes Status: Acute (6) Elevated troponin Current Visit: Yes Status: Acute (7) DVT prophylaxis Current Visit: Yes Status: Acute (8) Morbid obesity with BMI of 40.0-44.9, adult Current Visit: Yes Status: Chronic - Time Spent with Patient Total time spent is greater than 50% in coordination of care (as documented) at patient's floor/unit and/or counseling patient: Internal Medicine: Result - Labs CBC & Chem 7: 01/05/19 05:00 01/05/19 05:00 Labs: Short CBC 01/05/19 Range/Units 05:00 WBC 14.3 H (4.3-11.1) K/mcL Hgb 16.1 D (12.9-16.9) g/dL Hct 45.7 (37.5-50.1) % Plt Count 115 L (140-400) K/mcL BMP 01/05/19 05:00 Sodium 136 Potassium 3.9 Chloride 103 Carbon Dioxide 25 BUN 13 Creatinine 0.84 Glucose 290 H Calcium 8.6 Cardiac Enzymes 01/05/19 01/05/19 Range/Units 05:00 11:25 Troponin I 0.06 H* 0.06 H* (< 0.04) ng/mL - Impressions Impressions Foot MRI 01/04/19 16:04 IMPRESSION: 1. No osteomyelitis. 2. Shallow soft tissue ulcerations of the 1st toe. No sinus tract or drainable fluid collection. 1st toe and dorsal forefoot subcutaneous edema compatible with cellulitis. 3. Mild 1st MTP degenerative changes. 4. Moderate edema throughout the intrinsic musculature of the foot compatible with diabetic myopathy versus myositis versus early denervation. D/ / Abdon Patricia MD / Abdon Patricia MD Interpreting Provider: Abdon Patricia MD - Attending Attestation I examined this patient and my medical decision-making was reviewed with the Resident Physician on 01/05/19. I agree with the documented findings, disposition and treatment plan as described except to the extent set forth below. Mr Hutson is currently hospitalized for diabetic foot ulcer. He remains moderate to high risk due to potential for worsening clinical status. Mr Hutson is feeling OK. Pain is controlled at this time. No fever or chills. Tolerating IV abx. No GI issues. Exam alert Comfortable in bed Mucus membranes dry Heart distant and not tachy No wheeze abd soft Dressing intact Moves all extremities I/P 1. Diabetic foot ulcer - on IV abx. Awaiting further plans per podiatry 2. DM - fair control 3. Morbid obesity Further diagnoses and plan as above. <Karie Jovel N - Last Filed: 01/05/19 16:02> (1) Sepsis Qualifiers: Sepsis type: sepsis due to unspecified organism Qualified Code(s): A41.9 - Sepsis, unspecified organism <Marques Fletcher - Last Filed: 01/05/19 18:42> (1) Diabetes Qualifiers: Diabetes mellitus type: type 2 Diabetes mellitus half-way insulin use: with half-way use Diabetes mellitus complication detail: with foot ulcer Qualified Code(s): E11.621 - Type 2 diabetes mellitus with foot ulcer; L97.509 - Non- pressure chronic ulcer of other part of unspecified foot with unspecified severity; Z79.4 - [facility] (current) use of insulin (3) Sepsis Qualifiers: Sepsis type: methicillin susceptible Staphylococcus aureus Qualified Code(s): A41.01 - Sepsis due to Methicillin susceptible Staphylococcus aureus
[2019-01-05] MEDS: FLUoxetine 20 MG CAPSULE PO SCH (11:32)
[2019-01-05] MEDS: Gabapentin 300 MG CAPSULE PO SCH ×3 (11:33→22:45)
--- NOTE | 2019-01-05 14:11 | Podiatry Progress Note ---
Date of Encounter: 01/05/19 Time of Encounter: 13:15 - Assessment and Plan (1) Diabetic foot infection Current Visit: Yes Status: Acute Assessment: -Edema, erythema, and discoloration noted right hallux circumferentially worse since yesterday. No obvious open ulcers. Erythema extends to dorsal aspect of foot, does not extend past demarcation line. Serous drainage noted. Callused area noted distal plantar aspect. Obvious fluid noted under skin. No fluctuance. Xerosis noted. -2/4 PT/DP pulse RLE -Cap refill less than 3 seconds -No pain with calf squeeze -WBC 14.3 and trending up, temperature 101.4 during the night currently 98.4 -ESR 22, CRP 42 -Hgb A1c 8.7 -Right foot x-ray showed no evidence of abnormality -Right CT of foot from 9 days ago showed subcutaneous soft tissue swelling, greater along the dorsal aspect of the foot and along the plantar aspect of the great toe. Findings most compatible with cellulitis. Definite ulceration is not identified. No soft tissue gas is seen. No focal fluid collections are identified. No CT evidence of osteomyelitis is identified. Thickening of the distal Achilles tendon and the central cord of the plantar aponeurosis. Correlation with clinical evidence of Achilles tendinopathy and plantar fascitis. -Right MRI shows no evidence of osteomyelitis. It does show evidence of shal low soft tissue ulceration of the 1st toe. No sinus tract or drainable fluid collection. 1st toe and dorsal forefoot subcutaneous edema compatible with cellulitis. Mild 1st MTP degenerative changes. Moderate edema through the intrinsic musculature of the foot compatible with diabetic myopathy versus myositis versus early denervation. -ABIs preliminary are normal -TCP O2 preliminary are normal -Patient does vape -Blood culture preliminary gram positive cocci -Wound cultures preliminary Plan: -Site cleaned with sterile .9NS and pat dry -Painted with betadine -Covered with 4x4 dry gauze and Kerlix -Plan for I&D non viable soft tissue, possible partial 1st ray amputation, all associated procedures by Dr. Michaud tomorrow -Nature of the procedure, risks versus benefits, potential complications of surgery, and condition discussed. All questions and concerns addressed. Consent signed and placed in chart. -NPO after midnight -Spoke with patient about the need for him to stop tobacco use (vape) and the importance of getting his A1c under control <7 and blood sugars <150 to aide in wound healing -Heel medix boots to lower extremities at all times while in bed, nursing to obtain from central -Recommend ID, antibiotic recommendations greatly appreciated -Recommend something to help with agitation due to not smoking or nicotine patch Subjective Interval history: Patient is alert and oriented 3, sitting up in bed eating lunch, no acute distress noted. Patient denies any chest pain, shortness of breath, or calf pain. He does report pain right medial groin area worse with ambulation. Patient reports fever through the night, highest temperature 101.4. He denies any chills, nausea, vomiting, or diarrhea. Patient does report he is getting anxious and would like to go outside and smoke. Informed patient we are a nonsmoking facility and that I did not advise that he go out to smoke but I would recommend something for anxiety to help with agitation or nicotine patch. Objective - Vital Signs Vital Signs: Vital Signs Temp Pulse Resp BP Pulse Ox 01/05/19 10:50 98.4 F 71 18 107/63 96 01/05/19 07:00 97.3 F L 85 16 97/61 96 01/05/19 03:09 99.0 F 76 12 102/63 96 01/05/19 01:30 99.9 F H 74 18 92/60 95 01/05/19 00:02 101.4 F H 96 18 139/84 94 01/04/19 22:00 18 119/78 95 01/04/19 19:14 99.8 F H 92 18 119/78 95 01/04/19 15:36 18 138/76 01/04/19 14:12 73 18 120/77 96 Intake and Output 01/04/19 01/05/19 01/05/19 23:59 07:59 15:59 Intake Total 520 / 520 Output Total 0 / 0 Balance 520 / 520 Intake: IV Fluids 520 / 520 Maxipime 2,000 MG In Water for inj. (sterile) 20 ML @ 300 mls/ hr IVP Q8HR TENISHA Rx#:[id number] Vancocin 2,000 MG In 0.9 % 500 / 500 Sodium Chloride 500 ML @ 250 mls/hr IVPB Q12H TENISHA Rx#: [id number] Oral 0 / 0 Output: Urine 0 / 0 Other: Meal Breakfast Percent of Meal Consumed 100% # Voids 1 2 # Bowel Movements 0 Weight 181.437 kg Blood Glucose* 210 226 277 - Exam Exam: Constitutional: Alert and oriented x 3, no acute distress noted, obese male Vascular: 1/4 PT/DP LLE, 2/4 PT/DP RLE, cap refill less than 3 seconds, skin warm from tibia to toes, no pain with calf squeeze bilaterally Neurological: Diminished protective sensation, normal plantar response, normal proprioception dorsiflexion/plantar flexion Dermatological: Edema, erythema, and discoloration noted right hallux circumferentially worse since yesterday. No obvious open ulcers. Erythema ex tends to dorsal aspect of foot, does not extend past demarcation line. Serous drainage noted. Callused area noted distal plantar aspect. Obvious fluid noted under skin. No fluctuance. Xerosis noted. Musculoskeletal: 4/5 muscle strength and normal muscle tone - Lab Result Diagrams: 01/05/19 05:00 01/05/19 05:00 Labs: Abnormal lab results WBC 14.3 K/mcL (4.3-11.1) H 01/05/19 05:00 Plt Count 115 K/mcL (140-400) L 01/05/19 05:00 Neutrophils # 10.2 K/mcL (1.6-8.9) H 01/04/19 11:57 Monocytes # 1.5 K/mcL (0.0-1.3) H 01/04/19 11:57 Eosinophils # 0.7 K/mcL (0.0-0.6) H 01/04/19 11:57 ESR 22 mm/hr (0-10) H 01/04/19 11:57 Glucose 290 mg/dL (70-105) H 01/05/19 05:00 Hemoglobin A1c 8.7 % (-5.6) H 01/04/19 12:03 Troponin I 0.06 ng/mL (< 0.04) H* 01/05/19 11:25 C-Reactive Protein 42 mg/L (Less than 10) H 01/04/19 11:57 Staph aureus (PCR) DETECTED (Not Detect) A 01/04/19 11:57 Microbiology, Last 48 Hours 01/04/19 11:57 Blood Culture - Preliminary Peripheral Venipuncture Gram Positive Cocci 01/04/19 15:44 Wound Culture - Preliminary Right Great Toe Culture is incubating. 01/04/19 15:44 Anaerobic Culture - Preliminary Right Great Toe Culture is incubating. 01/04/19 11:57 Blood Culture - Preliminary Peripheral Venipuncture Culture is incubating and being continuously monitored for growth. Final report to follow. Consult Discharge Plan - Plan Referrals: Javier Riggins MD [Primary Care Provider] -
[2019-01-05] MEDS: Nicotine 21 MG PATCH.TD24 TD SCH (16:42)
[2019-01-05] MEDS: Insulin LISPRO 300 UNITS/3 ML VIAL SQ SCH (16:43)
[2019-01-05] MEDS ORDERED: Insulin DETEMIR 100 UNIT/ML X5UNITS SQ SCH (21:00)
[2019-01-06 01:02] LABS: Basophils % 0.4 %; Eosinophils # 0.5 K/mcL (0.0-0.6); Eosinophils % 4.3 %; Hematocrit 45.4 % (37.5-50.1); Hemoglobin 15.6 g/dL (12.9-16.9); Immature Granulocytes % 0.3 % (0-4); Lymphocytes # 1.6 K/mcL (0.6-4.6); Lymphocytes % 14.2 %; Mean Corpuscular HGB Conc 34.4 g/dL (31.6-35.5); Mean Corpuscular Hemoglobin 32.1 pg (28.0-33.3); Mean Corpuscular Volume 93.4 fL (83.0-100.0); Mean Platelet Volume 11.3 fL (9.4-12.4); Monocytes # 1.3 K/mcL (0.0-1.3); Monocytes % 11.5 %; Neutrophils # 7.8 K/mcL (1.6-8.9); Platelet Count 125 K/mcL (140-400); Red Blood Count 4.86 M/mcL (4.19-5.50); Red Cell Distribution Width 12.9 % (11.5-14.5); Segmented Neutrophils % 69.3 %
[2019-01-06 01:16] LABS: BUN/Creatinine Ratio 18 (6-26); Blood Urea Nitrogen 14 mg/dL (6-20); Calcium 8.5 mg/dL (8.6-10.3); Carbon Dioxide 25 mEq/L (23-29); Chloride 104 mEq/L (98-107); Glucose 306 mg/dL (70-105); Osmolality,Calculated 292 (280-300); Potassium 3.9 mEq/L (3.5-5.1); Sodium 135 mEq/L (136-145); eGFR For Non-African Americans > 60 (> 60)
[2019-01-06] MEDS: Cefepime HCl 2,000 MG in Water for inj. (sterile) 20 ML 20 ML IVP SCH ×3 (02:54→16:24)
[2019-01-06] MEDS: *HR* Enoxaparin 40 MG/0.4 ML SYRINGE SQ SCH (05:35)
[2019-01-06] MEDS: Insulin LISPRO 300 UNITS/3 ML VIAL SQ SCH ×4 (10:08→21:02)
[2019-01-06] MEDS: FLUoxetine 20 MG CAPSULE PO SCH (10:32)
[2019-01-06] MEDS: Gabapentin 300 MG CAPSULE PO SCH ×3 (10:32→21:02)
[2019-01-06] MEDS: Nicotine 21 MG PATCH.TD24 TD SCH (10:50)
--- NOTE | 2019-01-06 11:13 | Internal Med Progress Note ---
<Aysha Hussein - Last Filed: 01/06/19 11:09> Hospitalist Progress Note - Encounter Date of Encounter: 01/06/19 Time of Encounter: 11:09 - Subjective Interval History: Patient seen and examined at bedside. His is present. He is alert and oriented times 3. He reports fevers and chills overnight. His foot is still hurting. He is also complained of right upper thigh discomfort since when he presented on admission. He denies any shortness of breath, cough, chest pain. He is awaiting to go to the OR for debridement of the foot. Patient complains that he did not get very much sleep last night due to being woke up for e valuations. - Exam Vitals: Temp Pulse Resp BP Pulse Ox 98.4 F 71 16 124/76 96 01/06/19 10:03 01/06/19 10:03 01/06/19 10:03 01/06/19 10:03 01/06/19 10:03 Exam: Gen.: Vitals noted. No acute distress. AAOx3 HEENT: oropharynx clear, Normocephalic, atraumatic Neck: Supple. No adenopathy. Cardiac: RRR, no murmur, +S1/S2 Pulmonary: CTA bilaterally, no wheezes, rales or rhonchi, equal chest expansion Abdomen: soft, nontender, Bowel sounds noted, no guarding MSK: ROM intact, no joint swelling noted Extremities: no BLE edema, nontender calf, no cyanosis or clubbing, right foot is bandaged and clean. Mild Tenderness of right upper thigh Neuro: A&Ox3, moves all extremities, no focal deficits Psych: Appropriate mood and behavior - Assessment and Plan (1) Sepsis Current Visit: Yes Status: Suspected Assessment and Plan: Improving Patient initially presented meeting 3 SIRS sepsis criteria with temperature 101.4, HR 96, WBC 13.9. Patient was non-toxic or hypotensive and therefore do not require fluid boluses. -Etiology is right foot diabetic ulcer and possibly bacteremia -afebrile, WBC 11.2 (14.3) improving -hemodynamically stable -lactic acid 1.4 -01/04/2019 blood cultures growing Staphylococcus aureus 1/2 -01/05/2019 blood cultures pending -01/06/2019 blood cultures pending -01/04/2019 wound culture right great toe growing Staphylococcus aureus -01/04/2019 anaerobic cultures pending -right foot MRI showing cellulitis but not osteomyelitis Plan: -continue vancomycin and cefepime day 3 -will wait blood cultures -await wound culture results -will continue to monitor CBC (2) Diabetic foot infection Current Visit: Yes Status: Acute Assessment and Plan: Diabetic foot ulcer on right foot secondary to uncontrolled diabetes. Patient has since lost hundred 60 pounds and has improved his hemoglobin A1C from 16 to 8.7. -ESR 22, CRP 42 -right foot MRI showing no osteomyelitis. Shallow soft tissue ulcer of the 1st toe. No sinus tract or trainable fluid collection. 1st toe and dorsal forefoot subcutaneous edema compatible with cellulitis. Mild 1st MTP degenerative changes. Moderate edema throughout the intrinsic must culture of the foot compatible with diabetic myopathy versus myositis versus early denervation. -LACEY of bilateral lower extremities normal -TCPO2 bilateral lower extremities normal -01/04/2019 wound culture right great toe growing Staphylococcus aureus -01/04/2019 anaerobic cultures pending Plan: -podiatry following and planning to take patient to OR today for debridement of the foot and possible amputation if needed -continue vancomycin Day 3 -continue cefepime day 3 -infectious disease consulted for recommendations on antibiotics appreciated (3) Bacteremia Current Visit: Yes Status: Acute Assessment and Plan: Bacteremia on blood culture results. -Most likely secondary to diabetic foot ulcer -01/04/2019 blood cultures growing Staphylococcus aureus 1/2 -01/05/2019 blood cultures pending -01/06/2019 blood cultures pending Plan: -will continue to await the blood culture results -continue vancomycin Day 3 (4) Diabetes mellitus type 2, insulin dependent Current Visit: Yes Status: Acute Assessment and Plan: History of known diabetes taking insulin -glucose elevated -continue diabetic diet -Levemir 30 units -continue high dose sliding scale insulin -Accu checks (5) Elevated troponin Current Visit: Yes Status: Acute Assessment and Plan: Elevated troponin at admission. Patient denies chest pain. Troponin 0.06x2 Adynamic -will continue to monitor for chest pain (6) Diabetes Current Visit: Yes Status: Acute (7) Morbid obesity with BMI of 40.0-44.9, adult Current Visit: Yes Status: Chronic Assessment and Plan: Needs lifestyle change (8) DVT prophylaxis Current Visit: Yes Status: Acute Assessment and Plan: Lovenox SQ. Patient apparently been refusing (9) Thigh pain Current Visit: Yes Status: Acute Assessment and Plan: Patient reported that when he initially presented to the ED he did have some right upper thigh discomfort. It is not improved. -The right upper thigh does not appear swollen or erythematous. -Denies history of DVT -etiology may be musculoskeletal however consider DVT Plan: -will order and ultrasound of right lower extremity - Time Spent with Patient Total time spent is greater than 50% in coordination of care (as documented) at patient's floor/unit and/or counseling patient: Internal Medicine: Result - Labs CBC & Chem 7: 01/06/19 00:27 01/06/19 00:27 Labs: Short CBC 01/06/19 Range/Units 00:27 WBC 11.2 H (4.3-11.1) K/mcL Hgb 15.6 (12.9-16.9) g/dL Hct 45.4 (37.5-50.1) % Plt Count 125 L (140-400) K/mcL Neutrophils # 7.8 (1.6-8.9) K/mcL BMP 01/06/19 00:27 Sodium 135 L Potassium 3.9 Chloride 104 Carbon Dioxide 25 BUN 14 Creatinine 0.79 Glucose 306 H Calcium 8.5 L Cardiac Enzymes 01/05/19 Range/Units 11:25 Troponin I 0.06 H* (< 0.04) ng/mL Consult Discharge Plan - Plan Referrals: Javier Riggins MD [Primary Care Provider] - <Marques Fletcher - Last Filed: 01/06/19 18:09> Hospitalist Progress Note - Encounter Date of Encounter: 01/06/19 - Exam Vitals: Temp Pulse Resp BP Pulse Ox 99.4 F 83 16 128/81 95 01/06/19 17:41 01/06/19 17:41 01/06/19 17:41 01/06/19 17:41 01/06/19 17:41 - Assessment and Plan (1) Diabetic foot infection Current Visit: Yes Status: Acute (2) Sepsis Current Visit: Yes Status: Suspected (3) Bacteremia Current Visit: Yes Status: Acute (4) Diabetes mellitus type 2, insulin dependent Current Visit: Yes Status: Acute (5) Elevated troponin Current Visit: Yes Status: Acute (6) DVT prophylaxis Current Visit: Yes Status: Acute (7) Diabetes Current Visit: Yes Status: Acute (8) Morbid obesity with BMI of 40.0-44.9, adult Current Visit: Yes Status: Chronic (9) Thigh pain Current Visit: Yes Status: Acute - Time Spent with Patient Total time spent is greater than 50% in coordination of care (as documented) at patient's floor/unit and/or counseling patient: Internal Medicine: Result - Labs CBC & Chem 7: 01/06/19 00:27 01/06/19 00:27 Labs: Short CBC 01/06/19 Range/Units 00:27 WBC 11.2 H (4.3-11.1) K/mcL Hgb 15.6 (12.9-16.9) g/dL Hct 45.4 (37.5-50.1) % Plt Count 125 L (140-400) K/mcL Neutrophils # 7.8 (1.6-8.9) K/mcL BMP 01/06/19 00:27 Sodium 135 L Potassium 3.9 Chloride 104 Carbon Dioxide 25 BUN 14 Creatinine 0.79 Glucose 306 H Calcium 8.5 L - Attending Attestation I examined this patient and my medical decision-making was reviewed with the Resident Physician on 01/06/19. I agree with the documented findings, disposition and treatment plan as described except to the extent set forth below. Mr Hutson is currently admitted for diabetic foot infection. To go to OR today. He remains moderate to high risk due to potential for worsening clinical status. Mr Hutson is feeling OK. He is waiting to go to surgery. No fever or chills. No CP or SOB. Has a lot of drainage from toe. Exam alert Comfortable Mucus membranes dry Heart reg and not tachy No wheeze abd soft Dressing intact - drainage noted I/P 1. Diabetic foot ulcer - to go to OR today. 2. DM 3. Morbid obesity Further diagnoses and plan as above. 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 <Marques Fletcher - Last Filed: 01/06/19 18:09> (2) Sepsis Qualifiers: Sepsis type: methicillin susceptible Staphylococcus aureus Qualified Code(s): A41.01 - Sepsis due to Methicillin susceptible Staphylococcus aureus (7) Diabetes Qualifiers: Diabetes mellitus type: type 2 Diabetes mellitus penitentiary insulin use: with joint terminal attack controller use Diabetes mellitus complication detail: with foot ulcer Qualified Code(s): E11.621 - Type 2 diabetes mellitus with foot ulcer; L97.509 - Non- pressure chronic ulcer of other part of unspecified foot with unspecified severity; 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
--- NOTE | 2019-01-06 11:47 | Anesthesia Evaluation PreOp ---
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: Other (spinal stenosis) Other Medical History: Diabetes Type II, Other (obesity BMI=43.9, anxiety/depression) Anesthesia History: No Prior Anesthetic Complications, Past Anesthesia Alcohol Use: rarely Drug use: none Medications and Allergies FLUoxetine HCl [Fluoxetine HCl] 40 mg PO QAM 01/05/19 [History] Gabapentin 600 mg PO TID 01/05/19 [History] Hydrocodone/Acetaminophen [[place] 10-325 Tablet] 1 tab PO Q6H PRN 01/05/19 [History] Ibuprofen [Ibu] 800 mg PO Q8H PRN 01/05/19 [History] Insulin Glargine,Hum.rec.anlog [Basaglar Kwikpen U-100] 60 unit SQ HS 01/05/19 [History] Insulin LISPRO [Humalog Kwikpen U-100] 0 unit SQ TID 01/05/19 [History] Liraglutide [Victoza 3-[place]] 1.2 mg SQ BID 01/05/19 [History] Omeprazole [PriLOSEC] 20 mg PO DAILY 01/05/19 [History] Allergy/AdvReac Type Severity Reaction Status Date / Time citalopram [From Celexa] AdvReac Agitated Verified 01/04/19 10:26 red dye AdvReac Vomiting Verified 01/04/19 10:26 - Meds/Allergy Pre-op Review Medications Reviewed: Yes Allergies Reviewed: Yes Beta Blockers on Current Med List: No Anesthesia Results - Labs 01/06/19 00:27 01/06/19 00:27 Anesthesia Exam Vital Signs/O2 Sat/Glucose, Most Recent Temp Pulse Resp BP Pulse Ox 98.4 F 71 16 124/76 96 01/06/19 10:03 01/06/19 10:03 01/06/19 10:03 01/06/19 10:03 01/06/19 10:03 Blood Glucose* 235 Height: 6'8''/2.03m Weight: 400 lbs/181.4 kg NPO (# of Hours): 8 Pain Scale: 4 (back) Pain Scale Used: Numeric (1 - 10) - HEENT Pupil (Motor): EOMI Mallampati: III Teeth: Normal, Missing Oral Opening: Greater than 3 - COMFORT STATION SUPERVISOR LOC: Oriented COMFORT STATION SUPERVISOR Motor: Normal RUE, Normal LUE, Normal RLE, Normal LLE, Normal Face COMFORT STATION SUPERVISOR Sensory: Normal: RUE, LUE, Face, Deficit: RLE, LLE - Cardiac Rhythm: Regular Murmur: None - Pulmonary Breath Sounds: bilateral Clear Respiratory Effort: Symmetrical Anesthesia Assess/Plan ASA Score: 3 Level of consciousness: Cooperative, Oriented, Tranquil Anesthetic Plan: MAC Monitoring Plan: Standard Monitors
[2019-01-06] MEDS ORDERED: *HR* FentaNYL (PF) 100 MCG/2 ML VIAL ONE (12:23)
[2019-01-06] MEDS ORDERED: *HR* Propofol 200 MG/20 ML VIAL IVP ONE ×2 (12:24→13:30)
[2019-01-06] MEDS ORDERED: *HR* Midazolam HCl 2 MG/2 ML VIAL ONE (12:24)
[2019-01-06] MEDS ORDERED: Ondansetron 4 MG/2 ML VIAL ONE (12:25)
[2019-01-06] MEDS ORDERED: Lidocaine -MPF 2% 2 ML VIAL ONE (12:25)
[2019-01-06] MEDS ORDERED: Bupivacaine/EPI 1:200k 0.25%PF 10 ML VIAL INFILT ONE (13:02)
--- NOTE | 2019-01-06 14:19 | Orthopedic Operative Note ---
Date of procedure: 01/06/19 Pre-op diagnosis: Right 1st toe wound, abscess Post-op diagnosis: same Procedure: 01/06/19 14:08 1. Incision and drainage right 1st toe wound infection 2. Amputation right 1st toe Implants: None Complications: None Anesthesia: MAC, local Surgeon: Yinka Michaud Was there an dietary assistant present: No Estimated blood loss (cc): 5 Tourniquet Time (Minutes): 15 Specimen: Right 1st toe to pathology Condition: stable Disposition: floor Procedure in Detail: 01/06/19 14:09 INDICATIONS AND CONSENT Pawan Hutson is a 43-year-old male who presented with a chronic right first toe wound with infection. He failed multiple rounds of local wound care. He developed an apparent abscess at the plantar aspect of the toe as well as a recurrent wound at the dorsal aspect of the toe. MRI showed no evidence of osteomyelitis or abscess, although clinically there was evidence of soft tissue fluctuance at the plantar aspect of the toe with significant amount of non- viable soft tissue. Surgical intervention was warranted to debride all nonviable soft tissue for infection source control. This would include incision and drainage of abscess and all nonviable soft tissue at the toe. He was also consented for possible right first toe amputation if it was determined that the digit was not salvageable after removal of nonviable soft tissue. He agreed with the surgical plan. We discussed the above procedures in detail. This included a discussion on the indications, contraindications, and possible complications including but not limited to: infection, non-healing wound, pain, swelling, bleeding, blood clots, heart complications, nerve injury, tendon injury, vascular injury, loss of limb, loss of life, and need for further surgery. We also reviewed the expected post operative course, including a discussion on the non-weightbearing status after this procedure. He related understanding of our discussion regarding this surgery. All questions were answered to his satisfaction, and a proper written informed consent was obtained, signed, and placed in the chart. No guarantees were given, stated or implied, as to the outcome of this procedure. PROCEDURE IN DETAIL The patient was seen in the pre-operative holding area by Anesthesia, where he was consented for MAC with local block. The patient was then brought back to the operative suite and placed on the operating room table in the supine position. A sign-in was performed. MAC was then initiated per Anesthesia protocol. A well- padded pneumatic right ankle tourniquet was then placed. Next, the right lower leg was scrubbed, prepped, and draped in the usual aseptic manner. A [place] Time-Out was performed, and all parties in the room agreed. Next, an Esmarch was used to exsanguinate the right foot. The pneumatic ankle tourniquet was inflated to 250 mmHg. A total of 10 mL of 1% lidocaine plain and 10 mL of 0.5% Sensorcaine plain was injected in a modified ankle block technique of the right foot. A rongeur and 15 blade were used to debride all nonviable soft tissue at the dorsal and plantar aspect of the right first toe. It was determined that the digit was not salvageable and therefore was decided to amputate the digit. A 15 blade was used to perform a fishmouth incision at the level of the first metatarsophalangeal joint. The digit was then released of soft tissue at the joint capsule and the right first toe was removed. The toe was sent to pathology. The wound was irrigated with 3 L of normal saline using cystoscopy tubing. The tourniquet was then deflated and proper hyperemic response was noted to the foot. There was adequate bleeding within the surgical wound which was controlled using Bovie. The remaining soft tissue and bone appeared viable and healthy. The deep and subcutaneous tissue was reapproximated using 2-0 Vicryl and the skin was reapproximated under minimal tension using 2-0 nylon. A dry, sterile dressing was then applied, which consisted of: xeroform, 4x4's, Kerlix fluffs, ABDs, and Kerlix roll with ANTELMO wrap. Capillary refill time of the remaining toes on the right foot was also noted to be brisk at this time. A sign-out was performed. The patient tolerated anesthesia and the procedure well, and was transferred to PAC-U with vital signs stable and vascular status intact to the right lower extremity. Needle and sponge counts were correct X 2 at the end of the case. Dr. Yinka Michaud was present, scrubbed, and participated in all vital aspects of the procedure. After a brief stay in PAC-U, the patient will be admitted back to the floor for continued monitoring. We will follow up on pathology results. Patient will likely discharge on by mouth antibiotics as the and infectious source has been removed.
[2019-01-06] MEDS ORDERED: Dextrose Gel 15 GM/37.5 ML TUBE PO PRN ×2 (14:37)
[2019-01-06] MEDS ORDERED: Ondansetron 4 MG/2 ML VIAL IVP PRN (14:37)
[2019-01-06] MEDS ORDERED: *HR* Dextrose 50 % in Water (Syg) 50 ML SYRINGE IVP PRN (14:37)
[2019-01-06] MEDS ORDERED: D5% in Water 1,000 ML IVC PRN (14:37)
[2019-01-06] MEDS ORDERED: Gadolinium Contrast Agent (WT Based) IV PRN (14:37)
[2019-01-06] MEDS ORDERED: Acetaminophen 325 MG TABLET PO PRN (14:37)
[2019-01-06] MEDS ORDERED: Insulin DETEMIR 100 UNIT/ML X5UNITS SQ SCH ×2 (21:00)
[2019-01-06] MEDS: *HR* HYDROcodone/Acet 10/325 mg TABLET PO PRN (21:02)
[2019-01-07] MEDS: Cefepime HCl 2,000 MG in Water for inj. (sterile) 20 ML 20 ML IVP SCH ×3 (00:46→16:16)
[2019-01-07 01:47] LABS: Basophils # 0.1 K/mcL (0.0-0.2); Basophils % 0.8 %; Eosinophils # 0.4 K/mcL (0.0-0.6); Eosinophils % 4.6 %; Hematocrit 44.8 % (37.5-50.1); Hemoglobin 15.3 g/dL (12.9-16.9); Immature Granulocytes % 0.3 % (0-4); Lymphocytes # 1.7 K/mcL (0.6-4.6); Lymphocytes % 20.7 %; Mean Corpuscular HGB Conc 34.2 g/dL (31.6-35.5); Mean Corpuscular Hemoglobin 32.1 pg (28.0-33.3); Mean Corpuscular Volume 93.9 fL (83.0-100.0); Mean Platelet Volume 11.7 fL (9.4-12.4); Monocytes # 1.1 K/mcL (0.0-1.3); Monocytes % 13.6 %; Neutrophils # 4.8 K/mcL (1.6-8.9); Platelet Count 135 K/mcL (140-400); Red Blood Count 4.77 M/mcL (4.19-5.50); Red Cell Distribution Width 12.7 % (11.5-14.5)
[2019-01-07 02:06] LABS: BUN/Creatinine Ratio 14 (6-26); Blood Urea Nitrogen 12 mg/dL (6-20); Calcium 8.1 mg/dL (8.6-10.3); Carbon Dioxide 26 mEq/L (23-29); Chloride 104 mEq/L (98-107); Glucose 269 mg/dL (70-105); Osmolality,Calculated 291 (280-300); Potassium 3.7 mEq/L (3.5-5.1); Sodium 136 mEq/L (136-145); eGFR For Non-African Americans > 60 (> 60)
[2019-01-07] MEDS: *HR* Enoxaparin 40 MG/0.4 ML SYRINGE SQ SCH (06:24)
--- NOTE | 2019-01-07 08:10 | Internal Med Progress Note ---
Hospitalist Progress Note - Encounter Date of Encounter: 01/07/19 Time of Encounter: 10:30 - Subjective Interval History: Mr Hutson is currently admitted for infected foot ulcer. He is s/p amputation. He remains moderate to high risk due to potential for worsening clinical status. Mr Hutson is doing OK. Pain is controlled. No fever or chills. No CP or SOB. Awaiting final culture results. - Exam Vitals: Temp Pulse Resp BP Pulse Ox 97.8 F 70 16 125/79 94 01/07/19 06:38 01/07/19 06:38 01/07/19 06:38 01/07/19 06:38 01/07/19 06:38 Exam: General: Alert and oriented. Comfortable at this time. Skin: Normal color, no rash, no lesions. H: Normocephalic. EENT: EOMI, Mucus membranes moist. Cardiovascular: Normal S1 & S2, no murmurs Pulse regular. Lungs: Normal breath sounds, no wheezes or crackles. Abdomen: Soft, non-tender, Normal bowel sounds. Extremities: Dressing intact. Neurological: Normal cognition and motor skills. Pulses: radial pulses normal +2. Rest of the physical exam is non contributory - Assessment and Plan (1) Sepsis Current Visit: Yes Status: Suspected Assessment and Plan: Improving Patient initially presented meeting 3 SIRS sepsis criteria with temperature 101.4, HR 96, WBC 13.9. Patient was non-toxic or hypotensive and therefore do not require fluid boluses. -Etiology is right foot diabetic ulcer and possibly bacteremia -afebrile, WBC 11.2 (14.3) improving -hemodynamically stable -lactic acid 1.4 -01/04/2019 blood cultures growing Staphylococcus aureus 1/2 -01/05/2019 blood cultures pending -01/06/2019 blood cultures pending -01/04/2019 wound culture right great toe growing Staphylococcus aureus -01/04/2019 anaerobic cultures pending -right foot MRI showing cellulitis but not osteomyelitis Plan: -Continue Vanc and Cefipime Await final cultures and OR cultures (2) Diabetes Current Visit: Yes Status: Acute Assessment and Plan: Pt has hx of DM. Has had chronic ulcer of toe which has worsened. Taken to OR yesterday and amputated. Final cultures pending. Anticipate will be able to go home with PO abx (3) Bacteremia Current Visit: Yes Status: Acute Assessment and Plan: Bacteremia on blood culture results. -Most likely secondary to diabetic foot ulcer -01/04/2019 blood cultures growing Staphylococcus aureus 1/2 -01/05/2019 blood cultures pending -01/06/2019 blood cultures pending Plan: -will continue to await the blood culture results -continue vancomycin Day 4 (4) Diabetes mellitus type 2, insulin dependent Current Visit: Yes Status: Acute (5) DVT prophylaxis Current Visit: Yes Status: Acute Assessment and Plan: Lovenox SQ. Patient apparently been refusing (6) Morbid obesity with BMI of 40.0-44.9, adult Current Visit: Yes Status: Chronic Assessment and Plan: Needs lifestyle change - Time Spent with Patient Total time spent is greater than 50% in coordination of care (as documented) at patient's floor/unit and/or counseling patient: Internal Medicine: Result - Labs CBC & Chem 7: 01/07/19 00:33 01/07/19 09:42 Labs: Short CBC 01/07/19 Range/Units 00:33 WBC 8.0 (4.3-11.1) K/mcL Hgb 15.3 (12.9-16.9) g/dL Hct 44.8 (37.5-50.1) % Plt Count 135 L (140-400) K/mcL Neutrophils # 4.8 (1.6-8.9) K/mcL BMP 01/07/19 00:33 Sodium 136 Potassium 3.7 Chloride 104 Carbon Dioxide 26 BUN 12 Creatinine 0.85 Glucose 269 H Calcium 8.1 L Consult Discharge Plan - Plan Referrals: Javier Riggins MD [Primary Care Provider] - (1) Sepsis Qualifiers: Sepsis type: methicillin susceptible Staphylococcus aureus Qualified Code(s): A41.01 - Sepsis due to Methicillin susceptible Staphylococcus aureus (2) Diabetes Qualifiers: Diabetes mellitus type: type 2 Diabetes mellitus care home insulin use: with care home use Diabetes mellitus complication status: with skin complications Diabetes mellitus complication detail: with foot ulcer Qualified Code(s): E11.621 - Type 2 diabetes mellitus with foot ulcer; L97.509 - Non-pressure chronic ulcer of other part of unspecified foot with unspecified severity; Z79.4 - custodial (current) use of insulin
[2019-01-07] MEDS: Insulin LISPRO 300 UNITS/3 ML VIAL SQ SCH ×4 (09:29→20:59)
[2019-01-07] MEDS: FLUoxetine 20 MG CAPSULE PO SCH (09:31)
[2019-01-07] MEDS: Gabapentin 300 MG CAPSULE PO SCH ×3 (09:31→20:59)
[2019-01-07] MEDS: Nicotine 21 MG PATCH.TD24 TD SCH (09:32)
--- NOTE | 2019-01-07 09:55 | Podiatry Progress Note ---
Date of Encounter: 01/07/19 Time of Encounter: 09:52 - Assessment and Plan (1) Toe ulcer due to DM Current Visit: Yes Status: Acute 1. Patient progressing well POD 1 s/p right 1st toe I&D with amputation of the toe. Leukocytosis improved. WBAT in surgical shoe with heel touch. Will get orthowedge shoe before discharge. Rest and elevation recommended. Will likely be able to discharge with PO antibiotics. Dressing to be changed tomorrow. Will follow up on culture sensitivities for antibiotic recommendations. Pathology specimen was sent of the 1st toe. Qualifiers: Diabetes mellitus type: type 2 Laterality: right Non-pressure ulcer stage: with fat layer exposed Qualified Code(s): E11.621 - Type 2 diabetes mellitus with foot ulcer; L97.512 - Non-pressure chronic ulcer of other part of right foot with fat layer exposed Subjective Principal diagnosis: right 1st toe infection Interval history: Patient progressing well POD 1 s/p right 1st toe I&D with toe amputation. He reports some shooting "phantom" pain in the right foot. He denies n/v/f/c. He has questions regarding shoe gear that he will need once the surgical wound heals. Objective - Vital Signs Vital Signs: Vital Signs Temp Pulse Resp BP Pulse Ox 01/07/19 06:38 97.8 F 70 16 125/79 94 01/07/19 03:17 98.2 F 65 17 120/72 96 01/06/19 22:59 98.2 F 71 15 123/76 95 01/06/19 21:52 16 95 01/06/19 19:04 98.9 F 76 15 121/76 93 01/06/19 17:41 99.4 F 83 16 128/81 95 01/06/19 16:42 98.3 F 76 16 114/73 95 01/06/19 15:40 98.8 F 72 16 135/84 97 01/06/19 15:10 97.6 F 71 16 142/82 96 01/06/19 14:40 98.7 F 71 16 121/74 96 01/06/19 10:03 98.4 F 71 16 124/76 96 Intake and Output 01/06/19 01/07/19 01/07/19 23:59 07:59 15:59 Intake Total 760 / 760 520 / 520 120 / 120 Output Total 1000 / 1000 775 / 775 Balance -240 / -240 -255 / -255 120 / 120 Intake: IV Fluids 520 / 520 520 / 520 Maxipime 2,000 MG In Water for inj. (sterile) 20 ML @ 300 mls/ hr IVP Q8HR TENISHA Rx#:[id number] Vancocin 1,750 MG In 0.9 % 500 / 500 500 / 500 Sodium Chloride 500 ML @ 333.3 mls/hr IVPB Q8H TENISHA Rx#: [id number] Oral 240 / 240 0 / 0 120 / 120 Output: Urine 1000 / 1000 775 / 775 Other: Meal Dinner Breakfast Percent of Meal Consumed 30% 100% # Voids 1 Blood Glucose* 271 190 - Exam Exam: Alert, oriented x3, no acute distress, obese. Dermatology: Right foot dressing intact. No streaking erythema up the leg. No strikethrough. Vascular: capillary refill brisk to remaining digits of right foot. Musculoskeletal: No pain with manual compression of calf. Able to move remaining toes. Neuro: Sensations diminished to light touch bilateral lower extremity. - Lab Result Diagrams: 01/07/19 00:33 01/07/19 00:33 Labs: Abnormal lab results Plt Count 135 K/mcL (140-400) L 01/07/19 00:33 ESR 22 mm/hr (0-10) H 01/04/19 11:57 Glucose 269 mg/dL (70-105) H 01/07/19 00:33 POC Glucose 280 mg/dL (70-99) H 01/06/19 05:08 Hemoglobin A1c 8.7 % (-5.6) H 01/04/19 12:03 Calcium 8.1 mg/dL (8.6-10.3) L 01/07/19 00:33 Troponin I 0.06 ng/mL (< 0.04) H* 01/05/19 11:25 C-Reactive Protein 42 mg/L (Less than 10) H 01/04/19 11:57 Staph aureus (PCR) DETECTED (Not Detect) A 01/04/19 11:57 Microbiology, Last 48 Hours 01/04/19 11:57 Blood Culture - Preliminary Peripheral Venipuncture Staphylococcus aureus 01/04/19 15:44 Wound Culture - Preliminary Right Great Toe Staphylococcus aureus 01/06/19 00:27 Blood Culture - Preliminary Peripheral Venipuncture Culture is incubating and being continuously monitored for growth. Final report to follow. 01/06/19 00:27 Blood Culture - Preliminary Peripheral Venipuncture Culture is incubating and being continuously monitored for growth. Final report to follow. 01/05/19 15:56 Blood Culture - Preliminary Peripheral Venipuncture Culture is incubating and being continuously monitored for growth. Final report to follow. 01/05/19 15:50 Blood Culture - Preliminary Peripheral Venipuncture Culture is incubating and being continuously monitored for growth. Final report to follow. Consult Discharge Plan - Plan Referrals: Javier Riggins MD [Primary Care Provider] -
[2019-01-07 10:20] LABS: BUN/Creatinine Ratio 11 (6-26); Blood Urea Nitrogen 11 mg/dL (6-20); Vancomycin,Trough 14 mcg/mL (5-10); eGFR For Non-African Americans > 60 (> 60)
[2019-01-07] MEDS: Nystatin Cream 15 GM TUBE TP SCH ×2 (13:54→21:00)
[2019-01-07] MEDS: Insulin DETEMIR 100 UNIT/ML X5UNITS SQ SCH (20:59)
[2019-01-07] MEDS: *HR* HYDROcodone/Acet 10/325 mg TABLET PO PRN (20:59)
[2019-01-07] MEDS ORDERED: NON-FORMULARY MEDICATION 1 EACH EACH (Insulin Glargine,Hum.Rec.Anlog [Basaglar Kwikpen U-1 SQ SCH (21:00)
[2019-01-08] MEDS: Cefepime HCl 2,000 MG in Water for inj. (sterile) 20 ML 20 ML IVP SCH ×3 (00:13→15:36)
[2019-01-08] MEDS: *HR* Enoxaparin 40 MG/0.4 ML SYRINGE SQ SCH (05:34)
[2019-01-08 06:40] LABS: Hematocrit 43.3 % (37.5-50.1); Hemoglobin 15.5 g/dL (12.9-16.9); Mean Corpuscular HGB Conc 35.8 g/dL (31.6-35.5); Mean Corpuscular Hemoglobin 32.6 pg (28.0-33.3); Mean Corpuscular Volume 91.2 fL (83.0-100.0); Mean Platelet Volume 10.9 fL (9.4-12.4); Platelet Count 150 K/mcL (140-400); Red Blood Count 4.75 M/mcL (4.19-5.50); Red Cell Distribution Width 12.8 % (11.5-14.5)
[2019-01-08 07:01] LABS: BUN/Creatinine Ratio 13 (6-26); Blood Urea Nitrogen 10 mg/dL (6-20); Calcium 8.4 mg/dL (8.6-10.3); Carbon Dioxide 28 mEq/L (23-29); Chloride 105 mEq/L (98-107); Glucose 170 mg/dL (70-105); Osmolality,Calculated 289 (280-300); Potassium 3.4 mEq/L (3.5-5.1); Sodium 138 mEq/L (136-145); eGFR For Non-African Americans > 60 (> 60)
[2019-01-08] MEDS: Insulin LISPRO 300 UNITS/3 ML VIAL SQ SCH ×4 (08:16→20:46)
[2019-01-08] MEDS: Nicotine 21 MG PATCH.TD24 TD SCH (08:17)
[2019-01-08] MEDS: Gabapentin 300 MG CAPSULE PO SCH ×3 (08:17→20:44)
[2019-01-08] MEDS: FLUoxetine 20 MG CAPSULE PO SCH (08:19)
[2019-01-08] MEDS: Nystatin Cream 15 GM TUBE TP SCH ×2 (08:23→20:45)
--- NOTE | 2019-01-08 08:41 | Electrocardiograph Report ---
[address] [address] Test Date: 2019-01-05 Pat Name: Pawan Hutson Department: 115 Room: 3A35 Gender: M Author: : 1975 Requested By: Karie Jovel Order Number: [id number] Reading MD: Abdon Willingham Measurements Intervals [place] Rate: 73 P: 50 WI: 191 QRS: 31 QRSD: 92 T: 31 QT: 388 QTc: 413 Interpretive Statements SINUS RHYTHM LOW QRS VOLTAGE IN PRECORDIAL LEADS Electronically Signed On 01-08-2019 8:39:38 EDT by Abdon Willingham
--- NOTE | 2019-01-08 08:42 | Internal Med Progress Note ---
<Karie Jovel N - Last Filed: 01/08/19 16:56> Hospitalist Progress Note - Encounter Date of Encounter: 01/08/19 Time of Encounter: 08:42 - Subjective Interval History: Patient was seen and evaluated at the bedside. Over the weekend, he underwent indication of the right great toe. Patient is in good spirits about this, and st ates that he understands that it was necessary. He denies any complaints or concerns this morning, and states that he is eager to return home. He denies any fevers, chills, body aches, worsening foot pain, or increased erythema. Nursing staff reports no acute overnight events. - Exam Vitals: Temp Pulse Resp BP Pulse Ox 98.1 F 68 17 122/79 97 01/08/19 07:19 01/08/19 07:19 01/08/19 07:19 01/08/19 07:19 01/08/19 07:19 Exam: GENERAL: Well-developed, well-nourished obese adult male in no acute distress. HEENT: Atraumatic and normocephalic. CARDIOVASCULAR: Regular rate and rhythm. S1 and S2 present. Distant heart sounds secondary to body habitus. RESPIRATORY: Clear to auscultation bilaterally. Chest rises and falls symmetrically without accessory muscle use. GASTROINTESTINAL: Abdomen is soft, nontender, nondistended. EXTREMITIES: No clubbing, cyanosis, or edema. Right lower extremity bandages are clean, with surgical absence of right great toe. SKIN: Warm, dry, and intact. NEUROLOGIC: Alert and oriented x3. Patient is cooperative with exam and answers questions appropriately. No apparent focal deficits. PSYCHIATRIC: Appropriate mood and affect. - Assessment and Plan (1) Diabetic foot infection Current Visit: Yes Status: Acute Assessment and Plan: Likely source of initial sepsis and bacteremia. MRI of the right foot was notable for shallow soft tissue ulcerations of the fi rst toe, with no sinus tract or drainable fluid collection. First toe and dorsal foot or foot subcutaneous edema compatible with cellulitis was noted. Patient was evaluated by podiatry yesterday, and wound cultures were obtained. Patient was taken to the OR by podiatry over the weekend, with amputation of the right big toe. Preoperative wound culture is significant for growth of MRSA. Intraoperative pathology specimen was obtained; results pending. - Continue antibiotic therapy with vancomycin; discontinue cefepime. - Intraoperative pathology pending. - Infectious disease consult placed. - Appreciate ongoing podiatry and infectious disease recommendations and assistance with management of this problem. (2) Bacteremia Current Visit: Yes Status: Acute Assessment and Plan: Initial blood cultures significant for growth of gram-positive cocci 1 set. Serology is significant for detection of S. aureus via PCR, and initial wound culture demonstrated presence of MRSA. Repeat blood cultures are negative thus far for bacteremia. - Repeat blood cultures pending. - Continue antibiotic therapy with vancomycin; currently day 5 of therapy. - Transthoracic echocardiogram pending in light of MRSA bacteremia. - Further management per ID recommendations. (3) Sepsis Current Visit: Yes Status: Suspected Assessment and Plan: Improving. Patient initially met sepsis criteria with elevated temperature of 101.4F, HR 96bpm, leukocytosis with WBC 13.9, and identified infectious source of diabetic foot ulcer. Initial lactic acid was WNL at 1.4. Patient was not toxic-appearing or hypotensive, and was therefore not administered initial fluid boluses. Blood cultures were obtained, and patient was started on broad-spectrum antibiotic therapy with vancomycin and cefepime. Initial blood culture results are significant for growth of gram-positive cocci 1 set. Serology significant for detection of this Staph aureus by PCR. Over the weekend, patient has remained afebrile, with continued improvement in WBC count. Plan: - Repeat blood cultures pending. - Repeat and trend daily CBC. - Continue vancomycin. Appreciate infectious disease recommendations. (4) Diabetes mellitus type 2, insulin dependent Current Visit: Yes Status: Acute Assessment and Plan: History of T2DM with use of insulin at home. Hemoglobin A1c is elevated at 8.7. - Accuchecks ACHS. - Increase SSI to high-dose corrective ACHS. - Continue basal insulin 45 units QHS. (5) Morbid obesity with BMI of 40.0-44.9, adult Current Visit: Yes Status: Chronic (6) DVT prophylaxis Current Visit: Yes Status: Acute Assessment and Plan: - Lovenox SQ. (7) Right arm pain Current Visit: Yes Status: Acute Assessment and Plan: Patient reports pain in his right upper extremity, which initially began near his wrist at the site of his first IV. Since then, patient reports that the pain has been moving up his arm. On exam, he does have swelling in his right upper extremity proximal to IV placement. - Doppler ultrasound exam of the right upper extremity pending to rule out DVT. - Time Spent with Patient Total time spent is greater than 50% in coordination of care (as documented) at patient's floor/unit and/or counseling patient: Internal Medicine: Result - Labs CBC & Chem 7: 01/08/19 05:38 01/08/19 05:38 Labs: Short CBC 01/08/19 Range/Units 05:38 WBC 6.8 (4.3-11.1) K/mcL Hgb 15.5 (12.9-16.9) g/dL Hct 43.3 (37.5-50.1) % Plt Count 150 (140-400) K/mcL BMP 01/07/19 01/08/19 09:42 05:38 Sodium 138 Potassium 3.4 L Chloride 105 Carbon Dioxide 28 BUN 11 10 Creatinine 0.98 0.75 Glucose 170 H Calcium 8.4 L Consult Discharge Plan - Plan Referrals: Javier Riggins MD [Primary Care Provider] - <Marques Fletcher - Last Filed: 01/08/19 19:34> Hospitalist Progress Note - Encounter Date of Encounter: 01/08/19 - Exam Vitals: Temp Pulse Resp BP Pulse Ox 98.6 F 76 16 123/85 94 01/08/19 15:29 01/08/19 15:29 01/08/19 15:29 01/08/19 15:29 01/08/19 15:29 - Assessment and Plan (1) Diabetic foot infection Current Visit: Yes Status: Acute (2) Sepsis Current Visit: Yes Status: Suspected (3) Bacteremia Current Visit: Yes Status: Acute (4) Diabetes mellitus type 2, insulin dependent Current Visit: Yes Status: Acute (5) DVT prophylaxis Current Visit: Yes Status: Acute (6) Morbid obesity with BMI of 40.0-44.9, adult Current Visit: Yes Status: Chronic (7) Right arm pain Current Visit: Yes Status: Acute - Time Spent with Patient Total time spent is greater than 50% in coordination of care (as documented) at patient's floor/unit and/or counseling patient: Internal Medicine: Result - Labs CBC & Chem 7: 01/08/19 05:38 01/08/19 05:38 Labs: Short CBC 01/08/19 Range/Units 05:38 WBC 6.8 (4.3-11.1) K/mcL Hgb 15.5 (12.9-16.9) g/dL Hct 43.3 (37.5-50.1) % Plt Count 150 (140-400) K/mcL [facility] 01/08/19 05:38 Sodium 138 Potassium 3.4 L Chloride 105 Carbon Dioxide 28 BUN 10 Creatinine 0.75 Glucose 170 H Calcium 8.4 L - Attending Attestation I examined this patient and my medical decision-making was reviewed with the Resident Physician on 01/08/19. I agree with the documented findings, disposition and treatment plan as described except to the extent set forth below. Mr Hutson is currently admitted for diabetic foot infection and MRSA bacteremia. He remains moderate to high risk due to potential for worsening clinical status. Mr Hutson feels OK. No fever at this time. Appetite OK. No CP or SOB. Pain is controlled. Exam alert Comfortable in bed Mucus membranes dry Heart reg and not tachy. No murmur Lungs diminished Abd soft and nontender Dressing intact I/P 1. Diabetic foot ulcer s/p amputation - on IV abx 2. MRSA bacteremia - appreciate ID consult. TTE tomorrow. 3. Morbid obesity Further diagnoses and plan as above. <Karie Jovel N - Last Filed: 01/08/19 16:56> (3) Sepsis Qualifiers: Sepsis type: methicillin susceptible Staphylococcus aureus Qualified Code(s): A41.01 - Sepsis due to Methicillin susceptible Staphylococcus aureus <Marques Fletcher A - Last Filed: 01/08/19 19:34> (2) Sepsis Qualifiers: Sepsis type: methicillin susceptible Staphylococcus aureus Qualified Code(s): A41.01 - Sepsis due to Methicillin susceptible Staphylococcus aureus
--- NOTE | 2019-01-08 09:46 | Infectious Disease Consult ---
Infectious Disease-Consult - Encounter Date/Time Date of Encounter: 01/08/19 Time of Encounter: 10:00 - Data of Consult Requesting Physician: Marques Fletcher DO Primary Care Provider: Javier Riggins MD - [facility] HPI: Mr. Hutson is a 43-year-old male who presented to [place] for "right great toe pain" and was admitted for an infected diabetic foot ulcer on 01/04/2019. Infectious disease was consulted on 01/08/2019 for the foot ulcer and positive blood cultures. The patient is a 43-year-old male with a pertinent past medical history of IDDM, morbid obesity, and smoker who presented to [place] with pain in the first digit of his right foot. He has a known right foot ulcer and follows with Dr. Jules, podiatry, as an outpatient. He has had a previous culture of his wound which grew group B strep, serratia, and klebsiella oxytoca on 10/25/2018. He recently underwent outpatient treatment with clindamycin for approximately 9 days prior to his presentation to the emergency department. On day of presentation, patient reports bleeding and seeping from his ulcer associated with pain. He denied any systemic fevers, chills, nausea, vomiting, or diarrhea. He did have a mild leukocytosis of 13.9, however his vitals were stable and he did not meet sepsis/SIRS criteria. Lactic acid on presentation was 1.4. He did have a mild troponin elevation at 0.06 which remained stable at recheck. Patient's ESR and CRP were mildly elevated at 22 and 42, respectively. Blood cultures were collected in the emergency department, he was started on empiric vancomycin and cefepime, and podiatry was consulted prior to admission. During his hospital admission, the patient's blood cultures were positive for MRSA x 1 on 01/04/19. His right great toe wound culture also grew MRSA. His repeat blood cultures from 01/05 and 01/06 have NGTD. Patient has spiked one fever of 101.4 on the night of admission, but has remained afebrile since. His leukocytosis slightly increased to 14.3 the morning following his admission, but has decreased since and is now within normal range at 6.8 today. Rest of his lab workup has been generally unremarkable aside from hyperglycemia with an Hgb A1c of 8.7. His creatinine is at 0.75 and vancomycin trough 14 yesterday. MRI was performed and showed evidence for cellulitis, but no osteomyelitis. Patient underwent right 1st toe wound incision and drainage with amputation of the first toe on 01/06/19. Currently, the patient is resting comfortably in bed. He denies any fevers or chills at this time, but does admit to previous fever on admission. He denies any pain in his right foot. He states that he has been ambulating on the foot without difficulty. Denies any chest pain, SOB, N/V/D/C, hematuria, dysuria, or any other lesions or ulcerations. He is on day 5 of vancomycin and cefepime today. No growth on blood cultures over the past 48 hours. - ROS Review of Systems: 10 system review of systems performed and negative except as stated in HPI - Results CBC & Chem 7: 01/09/19 03:00 01/09/19 03:00 - Exam Vitals: Temp Pulse Resp BP Pulse Ox 98.1 F 68 17 122/79 97 01/08/19 07:19 01/08/19 07:19 01/08/19 07:19 01/08/19 07:19 01/08/19 07:19 Exam: General: obese, pleasant, no acute distress HEENT: head is atraumatic and normocephalic, pupils are equal, EOMI, mucosa moist, external ears and nares patent. Neck: unable to assess for JVD due to body habitus, trachea midline Chest: symmetrical chest wall rise, no tenderness to palpation Cardiovascular: rrr, no murmurs Respiratory: CTA bilaterally, no rales, ronchi or wheezin Abdomen: soft, nontender, no guarding or rigidity Extremities: venous stasis changes in both lower extremities. Sensation diminished bilaterally but intact. Right foot 1st digit amputated and bandaged. No purulent discharge or active bleeding noted at site. Neurological: no obvious focal neurological deficits Psych: pleasant, appropriate mood and affect RX: FLUoxetine HCl [Fluoxetine HCl] 40 mg PO QAM 01/05/19 [History] RX: Gabapentin 600 mg PO TID 01/05/19 [History] RX: Hydrocodone/Acetaminophen [[place] 10-325 Tablet] 1 tab PO Q6H PRN 01/05/19 [History] RX: Ibuprofen [Ibu] 800 mg PO Q8H PRN 01/05/19 [History] RX: Insulin Glargine,Hum.rec.anlog [Basaglar Kwikpen U-100] 60 unit SQ HS 01/05/19 [History] RX: Insulin LISPRO [Humalog Kwikpen U-100] 0 unit SQ TID 01/05/19 [History] RX: Liraglutide [Victoza 3-[place]] 1.2 mg SQ BID 01/05/19 [History] RX: Omeprazole [PriLOSEC] 20 mg PO DAILY 01/05/19 [History] RX: Nicotine Patch [Nicoderm] 21 mg TD DAILY #30 patch.td24 01/09/19 [Rx] RX: Vancomycin/0.9 % Sod Chloride [Vanco 1.75 gm/500 ml-0.9% NaCl] 1.75 gm IV Q8H 11 Days plast..bag 01/09/19 [Rx] Allergy/AdvReac Type Severity Reaction Status Date / Time citalopram [From Celexa] AdvReac Agitated Verified 01/04/19 10:26 red dye AdvReac Vomiting Verified 01/04/19 10:26 - Assessment and Plan (1) Sepsis Current Visit: Yes Status: Suspected -Patient met sepsis criteria on day of admission as he had a fever of 101.4 and leukocytosis in the setting of an infected ulcer -Lactic acid was within range at 1.4 -MR imaging studies showed cellulitis, but no evidence for osteomyelitis -Started on vancomycin and cefepime on admission -initial blood culture positive for MRSA x 1 on 01/04/2019, wound culture positive for MRSA as well -Repeat cultures on 01/05/19 and 01/06/19 Plan: -Sepsis secondary to MRSA bacteremia from infected foot ulcer -Source control achieved after I&D and amputation of right foot 1st digit per formed by podiatry -Patient hemodynamically stable and no longer septic -Currently on day 5 of vancomycin and cefepime -Recommend TTE as patient had MRSA bacteremia and has no prior echo available -Patient will require IV vancomycin until 01/19/2019. Recommend PICC line placement if planning for outpatient antibiotics. -Recommend obtaining, CBC, BMP, and repeat Vancomycin trough morning dose on 12/26 2 -Will discontinue cefepime. Qualifiers: Sepsis type: methicillin susceptible Staphylococcus aureus Qualified Code(s): A4. - Sepsis due to Methicillin susceptible Staphylococcus aureus SNOMED Code(s): 89816830 (2) Foot ulcer due to secondary DM Current Visit: No Status: Acute -History of foot ulcer followed by outpatient podiatry -Recently failed outpatient treatment with clindamycin -No evidence for osteomyelitis on MRI -1 set blood cultures were positive for MRSA, wound cultures positive for MRSA -s/p I&D and amputation of the first digit by podiatry SNOMED Code(s): 4803812 (3) Bacteremia Current Visit: Yes Status: Acute -MRSA bacteremia in the setting of infected diabetic foot ulcer -Patient on day 5 of vancomycin and cefepime -Will require IV vancomycin until 01/19 SNOMED Code(s): 7027588 (4) Diabetes mellitus type 2, insulin dependent Current Visit: Yes Status: Acute Hgb A1c 8.7 Recommend improved outpatient diabetic control SNOMED Code(s): 781108015 Past Med Surg Social Fam HX - Past Medical History Medical history: diabetes Additional medical history: spinal stenosis, sleep apnea Psychiatric history: anxiety, depression - Past Surgical History Surgical History: non-contributory Additional surgical history: deviated septum repaired. cyst removed from left fourth digit - Social History Smoking Status: Current every day smoker Smokeless Tobacco Status: Yes Alcohol use: rarely Drug use: none - Family History Father Adopted: No Living Status: Hx Family Cardiac Disorders: Yes Hx Family Respiratory Disorders: No Hx Family Cancer: Yes Hx Family GI Disorders: No Hx Family Endocrine Disorder: No Hx Family Neuromuscular Disorders: No Hx Family Neurologic Disorders: No Hx Family HEENT Disorders: No Hx Family Autoimmune Disorders: No Mother Adopted: No Living Status: Still Living Hx Family Cardiac Disorders: No Hx Family Respiratory Disorders: No Hx Family Cancer: Yes Hx Family GI Disorders: No Hx Family Endocrine Disorder: No Hx Family Neuromuscular Disorders: No Hx Family Neurologic Disorders: No Hx Family HEENT Disorders: No Hx Family Autoimmune Disorders: No Consult Discharge Plan - Plan Additional Instructions: Follow up with your PCP in 3-5 days for reevaluation. Follow up with podiatry in 1 week. Continue IV antibiotic therapy with vancomycin every 8 hours as directed. Take norco 10mg as directed for pain. If you need stronger pain medication, you will need to follow up with your PCP or podiatry. Use nicotine patch and replace it daily. DO NOT SMOKE while using the nicotine patch. Return to the emergency department if you have fevers, chills, worsening pain, increased redness/warmth of right foot, or if new concerns arise. Referrals: Yinka Michaud DPM [Partnered Physician] - 01/17/19 8:30 am Javier Riggins MD [Primary Care Provider] - Prescriptions: RX: Nicotine Patch [Nicoderm] 21 mg TD DAILY #30 patch.td24 RX: Vancomycin/0.9 % Sod Chloride [Vanco 1.75 gm/500 ml-0.9% NaCl] 1.75 gm IV Q8H 11 Days plast..bag - Attending Attestation I examined this patient and my medical decision-making was reviewed with the Resident Physician. I agree with the documented findings, disposition and treatment plan as described except to the extent set forth below. Patient is a 43-year-old gentleman who had morbid obesity and diabetes mellitus type 2 poorly controlled previously with hemoglobin A1c as high as 16. Patient tells me he has lost 160 pounds in the last 3 years. Patient comes in with a diabetic foot ulcer and bacteremia with staph aureus MRSA. At this point patient clinically doing well but does not appear toxic. She was having some pain and swelling in the right shoulder and swelling in his hand and he thinks it was due to an infiltrated IV. Assessment and plan: Sepsis Diabetic foot ulcer Diabetes mellitus type 2 poorly controlled MRSA bacteremia 1 out of 2 sets positive source likely diabetic foot ulcer Recommendations: At this point I difficult and speak with microbiology lab they do think this is MRSA even though the make a was negative. Patient has been on vancomycin and cefepime for 5 days. TTE has been ordered. Patient has no other [place] criteria. Patient has no conjunctivitis no conjunctival hemorrhage no endocarditis stigmata no joint effusion no septic emboli anywhere clinically Continue vancomycin with goal vancomycin trough of 15 Duration of treatment depends on the FARNAZ finding
--- NOTE | 2019-01-08 14:30 | Podiatry Progress Note ---
Date of Encounter: 01/08/19 Time of Encounter: 14:28 - Assessment and Plan (1) Toe ulcer due to DM Current Visit: Yes Status: Acute Assessment: S/P right hallux amputation on 01/[address] Michaud Maceration noted to suture line, sutures in tact, no signs of dehiscence noted WBC 6.8, ESR 22, CRP 42 Erythema and edema noted to forefoot Plan: Continue ATB per ID recommendations Encouraged patient not to smoke while in hospital/or at all d/t decreased wound healing Cleansed with 0.9 NS, painted with betadine, placed 4x4 dry gauze, kerlex, and ANTELMO bandage. Will order ortho wedge shoe. Patient to remain NWB of RLE when not wearing ortho wedge shoe Keep foot elevated to help reduce edema OK to d/c home when cleared with ID and Electronic Game Developer Follow up outpatient with Dr. Michaud in 1 week. Please make appointment prior to d/c. Qualifiers: Diabetes mellitus type: type 2 Laterality: right Non-pressure ulcer stage: with fat layer exposed Qualified Code(s): E11.621 - Type 2 diabetes mellitus with foot ulcer; L97.512 - Non-pressure chronic ulcer of other part of right foot with fat layer exposed Subjective Principal diagnosis: right 1st toe infection Interval history: Patient awake in bed. Alert and oriented x 3. Patient family at bedside. Patient states he is going to go outside and smoke. States he is just vaping. Instructed patient this will delay wound healing and this is a tobacco free facility and he is not allowed to smoke on the premise. Patient states he understands but he is still going to smoke despite my instructions. Denies any fevers, chills, nausea, vomiting, or diarrhea. Denies any calf pain, chest pain, or shortness of breath. No other questions or concerns at this time. Objective - Vital Signs Vital Signs: Vital Signs Temp Pulse Resp BP Pulse Ox 01/08/19 11:02 98.8 F 81 16 157/84 93 01/08/19 07:19 98.1 F 68 17 122/79 97 01/08/19 04:40 97.9 F 76 19 113/70 97 01/07/19 19:33 98.3 F 78 18 128/82 95 Intake and Output 01/07/19 01/08/19 01/08/19 23:59 07:59 15:59 Intake Total 1140 / 1140 520 / 520 240 / 240 Output Total 0 / 0 Balance 1140 / 1140 520 / 520 240 / 240 Intake: IV Fluids 1020 / 1020 520 / 520 Maxipime 2,000 MG In Water for inj. (sterile) 20 ML @ 300 mls/ hr IVP Q8HR TENISHA Rx#:[id number] Vancocin 1,750 MG In 0.9 % 500 / 500 500 / 500 Sodium Chloride 500 ML @ 333.3 mls/hr IVPB Q8H TENISHA Rx#: [id number] Oral 120 / 120 240 / 240 Output: Urine 0 / 0 Other: Meal Dinner Lunch Percent of Meal Consumed 100% 90% Stool Size Large # Bowel Movements 1 Weight 181.5 kg Blood Glucose* 337 168 172 Patient Weight 01/08/19 23:59 Weight 181.5 kg - Exam Exam: Constitiutional: Alert and oriented x 3. Well nourished. No acute distress noted Vascular: 1/4 DP/PT RLE, CFT <3 sec to all digits, warm to warm from tibia to toes RLE, no calf pain with squeeze RLE Neurologic: Diminished sensation to touch, normal plantar response, abnormal position sense dorsiflexion/plantar flexion Dermatologic: Right hallux amputation with incision noted. Maceration noted to suture line. Well approximated. Erythema noted extending to forefoot. 2/4 edema noted to right foot. Musculoskeletal: 4/5 muscle strength and normal tone RLE. - Lab Result Diagrams: 01/08/19 05:38 01/08/19 05:38 Labs: Abnormal lab results MCHC 35.8 g/dL (31.6-35.5) H 01/08/19 05:38 ESR 22 mm/hr (0-10) H 01/04/19 11:57 Potassium 3.4 mEq/L (3.5-5.1) L 01/08/19 05:38 Glucose 170 mg/dL (70-105) H 01/08/19 05:38 POC Glucose 337 mg/dL (70-99) H 01/07/19 19:42 Hemoglobin A1c 8.7 % (-5.6) H 01/04/19 12:03 Calcium 8.4 mg/dL (8.6-10.3) L 01/08/19 05:38 Troponin I 0.06 ng/mL (< 0.04) H* 01/05/19 11:25 C-Reactive Protein 42 mg/L (Less than 10) H 01/04/19 11:57 Vancomycin Trough 14 mcg/mL (5-10) H 01/07/19 09:42 Staph aureus (PCR) DETECTED (Not Detect) A 01/04/19 11:57 Microbiology, Last 48 Hours 01/04/19 11:57 Blood Culture - Final Peripheral Venipuncture Methicillin Resistant S.aureus 01/04/19 15:44 Anaerobic Culture - Preliminary Right Great Toe At this time, no anaerobic growth is present. The culture will be finalized after 5 days of incubation. 01/04/19 15:44 Wound Culture - Final Right Great Toe Staphylococcus aureus Consult Discharge Plan - Plan Referrals: Javier Riggins MD [Primary Care Provider] -
[2019-01-08 14:39] LABS: Staphylococcus by PCR DETECTED (Not Detect)
[2019-01-08] MEDS: *HR* HYDROcodone/Acet 10/325 mg TABLET PO PRN (15:36)
[2019-01-08] MEDS ORDERED: Perflutren Lipid Microsphere 1.3 ML in 0.9 % Sodium Chloride 8.7 ML IVP ONE (17:59)
[2019-01-08] MEDS: Insulin DETEMIR 100 UNIT/ML X5UNITS SQ SCH (20:46)
[2019-01-09 03:18] LABS: Hematocrit 45.7 % (37.5-50.1); Hemoglobin 15.9 g/dL (12.9-16.9); Mean Corpuscular HGB Conc 34.8 g/dL (31.6-35.5); Mean Corpuscular Hemoglobin 31.8 pg (28.0-33.3); Mean Corpuscular Volume 91.4 fL (83.0-100.0); Mean Platelet Volume 11.1 fL (9.4-12.4); Platelet Count 164 K/mcL (140-400); Red Cell Distribution Width 12.6 % (11.5-14.5)
[2019-01-09 03:34] LABS: BUN/Creatinine Ratio 13 (6-26); Blood Urea Nitrogen 10 mg/dL (6-20); Calcium 8.6 mg/dL (8.6-10.3); Carbon Dioxide 29 mEq/L (23-29); Chloride 103 mEq/L (98-107); Glucose 163 mg/dL (70-105); Osmolality,Calculated 293 (280-300); Potassium 3.6 mEq/L (3.5-5.1); Sodium 140 mEq/L (136-145); eGFR For Non-African Americans > 60 (> 60)
[2019-01-09] MEDS: *HR* HYDROcodone/Acet 10/325 mg TABLET PO PRN (03:48)
[2019-01-09] MEDS: *HR* Enoxaparin 40 MG/0.4 ML SYRINGE SQ SCH (04:50)
[2019-01-09 05:28] VITALS: BP 143/79
--- NOTE | 2019-01-09 07:40 | Discharge Summary ---
<Marques Fletcher - Last Filed: 01/09/19 14:55> Orders not resulted at time of discharge: Pending orders 01/04/19 15:44 Culture,Anaerobic [RM] Routine 01/05/19 15:56 Culture,Blood [BC] Stat 01/06/19 00:27 Culture,Blood [BC] AM 0400 01/06/19 14:06 Surgical Pathology [PTH] Routine Date of Encounter: 01/09/19 - Discharge Diagnosis (1) Diabetic foot infection Priority: Primary Status: Acute (2) Sepsis Priority: Primary Status: Suspected Qualifiers: Sepsis type: methicillin resistant Staphylococcus aureus Qualified Code(s): A41.02 - Sepsis due to Methicillin resistant Staphylococcus aureus (3) Bacteremia Priority: Secondary Status: Acute (4) Diabetes mellitus type 2, insulin dependent Priority: Secondary Status: Acute (5) Morbid obesity with BMI of 40.0-44.9, adult Priority: Secondary Status: Chronic (6) Right arm pain Priority: Secondary Status: Acute Hospital course: Mr. Hutson is a 43 year old male - Time Spent with Patient Total time spent providing and/or coordinating discharge services: 38min - Discharge Medications Prescriptions: New Vancomycin/0.9 % Sod Chloride [Vanco 1.75 gm/500 ml-0.9% NaCl] 1.75 gm IV Q8H 11 Days plast..bag Nicotine Patch [Nicoderm] 21 mg TD DAILY #30 patch.td24 Continue FLUoxetine HCl [Fluoxetine HCl] 40 mg PO QAM Insulin Glargine,Hum.rec.anlog [Basaglar Kwikpen U-100] 60 unit SQ HS Hydrocodone/Acetaminophen [[place] 10-325 Tablet] 1 tab PO Q6H PRN PRN Reason: Pain Gabapentin 600 mg PO TID Insulin LISPRO [Humalog Kwikpen U-100] 0 unit SQ TID Omeprazole [PriLOSEC] 20 mg PO DAILY Liraglutide [Victoza 3-Victor Hugo] 1.2 mg SQ BID Ibuprofen [Ibu] 800 mg PO Q8H PRN PRN Reason: Pain Home Medications: FLUoxetine HCl [Fluoxetine HCl] 40 mg PO QAM 01/05/19 [History] Gabapentin 600 mg PO TID 01/05/19 [History] Hydrocodone/Acetaminophen [[place]a 10-325 Tablet] 1 tab PO Q6H PRN 01/05/19 [History] Ibuprofen [Ibu] 800 mg PO Q8H PRN 01/05/19 [History] Insulin Glargine,Hum.rec.anlog [Basaglar Kwikpen U-100] 60 unit SQ HS 01/05/19 [History] Insulin LISPRO [Humalog Kwikpen U-100] 0 unit SQ TID 01/05/19 [History] Liraglutide [Victoza 3-Victor Hugo] 1.2 mg SQ BID 01/05/19 [History] Omeprazole [PriLOSEC] 20 mg PO DAILY 01/05/19 [History] Nicotine Patch [Nicoderm] 21 mg TD DAILY #30 patch.td24 01/09/19 [Rx] Vancomycin/0.9 % Sod Chloride [Vanco 1.75 gm/500 ml-0.9% NaCl] 1.75 gm IV Q8H 11 Days plast..bag 01/09/19 [Rx] Allergies/Adverse Reactions: Allergy/AdvReac Type Severity Reaction Status Date / Time citalopram [From Celexa] AdvReac Agitated Verified 01/04/19 10:26 red dye AdvReac Vomiting Verified 01/04/19 10:26 Date of admission: 01/04/19 18:34 Primary care physician: Javier Riggins MD Consults: 01/04/19 14:02 Consult to Podiatry [CONS] Stat Consulting Provider: [facility] Reason for Consult: diabetic foot ulcer, failed outpatient therapy Time Notified: 14:03 Call Completed: Yes 01/05/19 15:26 Consult to Infectious Diseases [CONS] Routine Consulting Provider: [facility] [place] Reason for Consult: diabetic foot ulcer; blood cx preliminary positive for gram pos cocci x1 set Time Notified: 15:28 Call Completed: Yes - Constitutional Vitals: Temp Pulse Resp BP Pulse Ox 98.3 F 69 18 143/79 95 01/09/19 05:27 01/09/19 05:27 01/09/19 05:27 01/09/19 05:27 01/09/19 05:27 - Patient Status Disposition: Home Health Service Condition: Good - Ambulatory Orders Ambulatory Orders: Basic Metabolic Panel [CHEM] Time Frame: 01/15/19, Location: Determined By Patient Complete Blood Count [HEME] Time Frame: 01/15/19, Location: Determined By Patient Vancomycin,Trough [CHEM] Time Frame: 01/15/19, Location: Determined By Patient - Discharge Instructions Instructions: Diabetic Foot Ulcers (DC) Follow Up With: Yinka Michaud DPM [Partnered Physician] - 01/17/19 8:30 am Javier Riggins MD [Primary Care Provider] - Additional Instructions: Follow up with your PCP in 3-5 days for reevaluation. Follow up with podiatry in 1 week. Continue IV antibiotic therapy with vancomycin every 8 hours as directed. Take norco 10mg as directed for pain. If you need stronger pain medication, you will need to follow up with your PCP or podiatry. Use nicotine patch and replace it daily. DO NOT SMOKE while using the nicotine patch. Return to the emergency department if you have fevers, chills, worsening pain, increased redness/warmth of right foot, or if new concerns arise. - Attending Attestation I examined this patient and my medical decision-making was reviewed with the Resident Physician on 01/09/19. I agree with the documented findings, disposition and treatment plan as described except to the extent set forth below. Mr Hutson has been admitted for diabetic foot ulcer and is s/p toe amputation. He has evidence of MRSA bacteremia as well. He is now afebrile and tolerating abx. He is going to be discharged home with HHC and abx with follow up. Exam alert Comfortable Mucus membranes dry Heart reg and not tachy No wheeze abd soft Dressing intact Plan D/C home today with IV abx Follow up as arranged. <Karie Jovel N - Last Filed: 01/09/19 15:37> - NOTES TO OUTPATIENT PROVIDER Notes to Outpatient Provider: Patient was admitted to the hospital with right great toe infection. Wound cultures demonstrated presence of MRSA. Patient underwent indication of right great toe. Patient was noted to have presence of MRSA bacteremia in 1/2 initial blood cultures. TTE did not demonstrate presence of any vegetations. Patient was discharged on vancomycin to be continued until 01/13/19. Patient will need repeat CBC, BMP, and vancomycin trough on 01/15/19. He is to follow-up with Dr. Silva in the outpatient podiatry clinic in 1 week. Orders not resulted at time of discharge: Pending orders 01/04/19 11:57 Culture,Blood [BC] Stat 01/04/19 15:44 Culture,Anaerobic [RM] Routine 01/05/19 15:56 Culture,Blood [BC] Stat 01/06/19 00:27 Culture,Blood [BC] AM 0400 01/06/19 14:06 Surgical Pathology [PTH] Routine Date of Encounter: 01/09/19 Time of Encounter: 07:40 - Discharge Diagnosis (1) Diabetic foot infection Priority: Primary Status: Acute (2) Bacteremia Priority: Secondary Status: Acute (3) Right arm pain Priority: Secondary Status: Acute (4) Sepsis Priority: Primary Status: Suspected Qualifiers: Sepsis type: methicillin resistant Staphylococcus aureus Qualified Code(s): A41.02 - Sepsis due to Methicillin resistant Staphylococcus aureus (5) Diabetes mellitus type 2, insulin dependent Priority: Secondary Status: Acute (6) Morbid obesity with BMI of 40.0-44.9, adult Priority: Secondary Status: Chronic Hospital course: Mr. Hutson is a 43-year old male who was admitted to the hospital for management of worsening right great toe ulcer. Initial workup performed in the emergency department was significant for elevated white blood cell count of 13.9. Blood cultures were obtained, and patient was noted to have 1/2 initial blood cultures positive for growth of MRSA. Initial antibiotic therapy was started with vancomycin and cefepime. MRI of the right foot demonstrated shallow soft tissue ulcerations of the first toe, with no sinus tract or drainable fluid collection. First toe and dorsal forefoot subcutaneous edema was noted, compatible with cellulitis. Degenerative changes of the first MTP was noted, as well as moderate edema throughout the intrinsic musculature of the foot compatible with diabetic myopathy versus myositis versus early denervation. Patient underwent lower extremity arterial physiology studies, which demonstrated bilateral lower extremity waveform with normal hemodynamics and LACEY. Patient underwent debridement and amputation of the right great toe on 01/06/19, which was performed by podiatry. Infectious disease consult was placed for recommendations regarding antibiotic therapy; per their recommendations, cefepime was discontinued, with continuation of vancomycin. Due to MRSA bacteremia, patient underwent TTE, which demonstrated no abnormal valvular findings or presence of vegetations. Patient did have improvement in pain, and white blood cell count trended down throughout admission. Patient did have development of right upper extremity swelling at site of IV placement. Right upper extremity Doppler exam demonstrated presence of superficial vein thrombosis, with no evidence of DVT. On day of discharge, patient denied any fevers, chills, or other signs concerning for infection. Patient was discharged with prescription to continue vancomycin through 01/19/19, with repeat CBC, BMP, and vancomycin trough to be drawn on 01/15/19. Patient is to follow-up with podiatry in 1 week for reevaluation. - Time Spent with Patient Total time spent providing and/or coordinating discharge services: Date of admission: 01/04/19 18:34 Primary care physician: Javier Riggins MD Consults: 01/04/19 14:02 Consult to Podiatry [CONS] Stat Consulting Provider: [facility] Reason for Consult: diabetic foot ulcer, failed outpatient therapy Time Notified: 14:03 Call Completed: Yes 01/05/19 15:26 Consult to Infectious Diseases [CONS] Routine Consulting Provider: [facility] Reason for Consult: diabetic foot ulcer; blood cx preliminary positive for gram pos cocci x1 set Time Notified: 15:28 Call Completed: Yes Discharging clinician: Karie Jovel Anticipated date of discharge: 01/09/19 - Constitutional Vitals: Temp Pulse Resp BP Pulse Ox 98.3 F 69 18 143/79 95 01/09/19 05:27 01/09/19 05:27 01/09/19 05:27 01/09/19 05:27 01/09/19 05:27 Exam: GENERAL: Well-developed, well-nourished obese adult male in no acute distress. HEENT: Atraumatic and normocephalic. CARDIOVASCULAR: Regular rate and rhythm. S1 and S2 present. Distant heart sounds secondary to body habitus. RESPIRATORY: Clear to auscultation bilaterally. Chest rises and falls symmetrically without accessory muscle use. GASTROINTESTINAL: Abdomen is soft, nontender, nondistended. EXTREMITIES: No clubbing, cyanosis, or edema. Right lower extremity bandages are clean, with surgical absence of right great toe. SKIN: Warm, dry, and intact. NEUROLOGIC: Alert and oriented x3. Patient is cooperative with exam and answers questions appropriately. No apparent focal deficits. PSYCHIATRIC: Appropriate mood and affect. - Patient Status Functional capacity at discharge: independent ambulation Overall status at discharge: patient is progressing back to baseline - Diet and Activity Activity: as per physical therapy, increase activity as tolerated Diet: diabetic diet
[2019-01-09] MEDS: FLUoxetine 20 MG CAPSULE PO SCH (08:32)
[2019-01-09] MEDS: Gabapentin 300 MG CAPSULE PO SCH (08:32)
[2019-01-09] MEDS: Nicotine 21 MG PATCH.TD24 TD SCH (08:32)
[2019-01-09] MEDS: Insulin LISPRO 300 UNITS/3 ML VIAL SQ SCH ×2 (08:33→12:45)
--- NOTE | 2019-01-09 10:23 | Infectious Disease Progress No ---
ID Progress Note Date of Encounter: 01/09/19 - Subjective Subjective: Patient seen and examined at bedside with present. He denies any fevers or chills overnight. He has stayed hemodynamically stable and afebrile. TTE was performed today and negative for obvious valvular dysfunction. Patient denies any hardware in his body such as prosthetic heart valves or joint replacements. - Objective CBC & Chem 7: 01/09/19 03:00 01/09/19 03:00 - Exam Vitals: Temp Pulse Resp BP Pulse Ox 98.3 F 69 18 143/79 95 01/09/19 05:27 01/09/19 05:27 01/09/19 05:27 01/09/19 05:27 01/09/19 05:27 Exam: General: obese, pleasant, no acute distress HEENT: head is atraumatic and normocephalic, pupils are equal, EOMI, mucosa moist, external ears and nares patent. Neck: unable to assess for JVD due to body habitus, trachea midline Chest: symmetrical chest wall rise, no tenderness to palpation Cardiovascular: rrr, no murmurs Respiratory: CTA bilaterally, no rales, ronchi or wheezin Abdomen: soft, nontender, no guarding or rigidity Extremities: venous stasis changes in both lower extremities. Sensation diminished bilaterally but intact. Right foot 1st digit amputated and bandaged. No purulent discharge or active bleeding noted at site. capillary refill less than 3 seconds b/l. Neurological: no obvious focal neurological deficits Psych: pleasant, appropriate mood and affect - Assessment and Plan (1) Sepsis Status: Suspected -Patient met sepsis criteria on day of admission as he had a fever of 101.4 and leukocytosis in the setting of an infected ulcer -Lactic acid was within range at 1.4 -MR imaging studies showed cellulitis, but no evidence for osteomyelitis -Started on vancomycin and cefepime on admission -initial blood culture positive for MRSA x 1 on 01/04/2019, wound culture positive for MRSA as well -Repeat cultures on 01/05/19 and 01/06/19 Plan: -Sepsis secondary to MRSA bacteremia from infected foot ulcer -Source control achieved after I&D and amputation of right foot 1st digit performed by podiatry -Sepsis resolved, patient hemodynamically stable -Currently on day 6 of vancomycin -TTE performed and negative for valvular dysfunction -Patient will require IV vancomycin until 01/19/2019. -Recommend obtaining, CBC, BMP, and repeat Vancomycin trough morning dose on 01/15 Qualifiers: Sepsis type: methicillin resistant Staphylococcus aureus Qualified Code(s): A41.02 - Sepsis due to Methicillin resistant Staphylococcus aureus SNOMED Code(s): 04248573 (2) Foot ulcer due to secondary DM Status: Acute -History of foot ulcer followed by outpatient podiatry -Recently failed outpatient treatment with clindamycin -No evidence for osteomyelitis on MRI -1 set blood cultures were positive for MRSA, wound cultures positive for MRSA -s/p I&D and amputation of the first digit by podiatry SNOMED Code(s): 9014089 (3) Bacteremia Status: Acute -MRSA bacteremia in the setting of infected diabetic foot ulcer -Patient on day 6 of vancomycin -Will require IV vancomycin until 01/19 SNOMED Code(s): 8873459 (4) Diabetes mellitus type 2, insulin dependent Status: Acute Hgb A1c 8.7 Recommend improved outpatient diabetic control SNOMED Code(s): 315826723 Consult Discharge Plan - Plan Instructions: Diabetic Foot Ulcers (DC) Additional Instructions: Follow up with your PCP in 3-5 days for reevaluation. Follow up with podiatry in 1 week. Continue IV antibiotic therapy with vancomycin every 8 hours as directed. Take norco 10mg as directed for pain. If you need stronger pain medication, you will need to follow up with your PCP or podiatry. Use nicotine patch and replace it daily. DO NOT SMOKE while using the nicotine patch. Return to the emergency department if you have fevers, chills, worsening pain, increased redness/warmth of right foot, or if new concerns arise. Referrals: Yinka Michaud DPM [Partnered Physician] - 01/17/19 8:30 am Javier Riggins MD [Primary Care Provider] - Prescriptions: RX: Nicotine Patch [Nicoderm] 21 mg TD DAILY #30 patch.td24 RX: Vancomycin/0.9 % Sod Chloride [Vanco 1.75 gm/500 ml-0.9% NaCl] 1.75 gm IV Q8H 11 Days plast..bag - Attending Attestation I examined this patient and my medical decision-making was reviewed with the Resident Physician. I agree with the documented findings, disposition and treatment plan as described except to the extent set forth below. Assessment and plan: Sepsis Diabetic foot ulcer Diabetes mellitus type 2 poorly controlled MRSA bacteremia 1 out of 2 sets positive source likely diabetic foot ulcer Recommendations: Patient has no endocarditis stigmata, no recurrent bacteremia, TTE is negative. I did receive a phone call from the hospitalist team asked me if we need a FARNAZ acid I think we can do just with a TTE since he has no other major [place] criteria and no minor [place] criteria. Treat through 01/15/2002 with vancomycin. Goal vancomycin trough around 15
--- NOTE | 2019-01-09 11:02 | Physician Discharge Referral ---
Home Health/Hosp Referral Info Transfer to: Home Health Attending Provider: Dr. Marques Fletcher Provider in Charge Post Discharge: PCP - Diagnosis (1) Diabetic foot infection Priority: Primary Status: Acute (2) Right arm pain Priority: Secondary Status: Acute (3) Bacteremia Priority: Secondary Status: Acute (4) Sepsis Priority: Secondary Status: Suspected (5) Diabetes mellitus type 2, insulin dependent Priority: Secondary Status: Acute (6) Morbid obesity with BMI of 40.0-44.9, adult Priority: Secondary Status: Chronic - Respiratory Orders Smoking Cessation: Smoking cessation has been advised. For more information, call the [place] Quit Line at 8-957-YNKS-NOW. - Dressing/Wound Care Type of Dressing/Treatments w/Frequency: Wound care to right foot as directed by podiatry. - Diet/Nutrition Diet/Nutrition: List: Diabetic diet - Activity Activity Orders: Up ad daly, Ambulate - Services Needed Following services are medically necessary services: Nursing, Home Health Aide, Physical Therapy, Occupational Therapy, Med Social Work, Home Infusion Home Care Orders: Patient will require CBC, BMP, and vancomycin trough drawn on 01/15/2019. - Transfer Medications Prescriptions: Nicotine Patch [Nicoderm] 21 mg TD DAILY #30 patch.td24 Vancomycin/0.9 % Sod Chloride [Vanco 1.75 gm/500 ml-0.9% NaCl] 1.75 gm IV Q8H 11 Days plast..bag Home Medications: FLUoxetine HCl [Fluoxetine HCl] 40 mg PO QAM 01/05/19 [History] Gabapentin 600 mg PO TID 01/05/19 [History] Hydrocodone/Acetaminophen [[place] 10-325 Tablet] 1 tab PO Q6H PRN 01/05/19 [History] Ibuprofen [Ibu] 800 mg PO Q8H PRN 01/05/19 [History] Insulin Glargine,Hum.rec.anlog [Basaglar Kwikpen U-100] 60 unit SQ HS 01/05/19 [History] Insulin LISPRO [Humalog Kwikpen U-100] 0 unit SQ TID 01/05/19 [History] Liraglutide [Victoza 3-Victor Hugo] 1.2 mg SQ BID 01/05/19 [History] Omeprazole [PriLOSEC] 20 mg PO DAILY 01/05/19 [History] Nicotine Patch [Nicoderm] 21 mg TD DAILY #30 patch.td24 01/09/19 [Rx] Vancomycin/0.9 % Sod Chloride [Vanco 1.75 gm/500 ml-0.9% NaCl] 1.75 gm IV Q8H 11 Days plast..bag 01/09/19 [Rx] Allergies/Adverse Reactions: Allergy/AdvReac Type Severity Reaction Status Date / Time citalopram [From Celexa] AdvReac Agitated Verified 01/04/19 10:26 red dye AdvReac Vomiting Verified 01/04/19 10:26 Certification: Further, I certify that my clinical findings support that this patient is homebound (i.e. absences from home require considerable and taxing effort and are for medical reasons or rastafarian services or infrequently or short duration when for other reasons) because: Homebound Reason: Patient requires assistance of a person or device to safely leave home, Leaving home requires considerable and taxing effort due to condition Attestation: My signature below is to certify that this patient is under my care and that I, or nurse practitioner, or a physician's topographical field assistant working with me, has a [id number] encounter with this patient.
[2019-01-09] MEDS: Nystatin Cream 15 GM TUBE TP SCH (11:47)
[2019-01-09] MEDS ORDERED: Aminoglycoside Consult 1 EACH MC ONE (14:17)
== END 2019-01-09 14:18 | disposition home health service (06) | DRG 710 ==
LOC: EMEROOARM 10:05 → 3ANU 10:05 → SUATTDRO 15:20 → 3ANU 15:47 → SUATTDRO 18:34
PROVIDERS: ADMIT Internal Medicine; ATTEND Internal Medicine

== ENCOUNTER 2020-03-31 06:37 | Observation (INO) ==
[2020-03-31 07:31] LABS: Basophils % 0.6 %; Eosinophils # 0.3 K/mcL (0.0-0.6); Eosinophils % 4.2 %; Hemoglobin 16.5 g/dL (12.9-16.9); Immature Granulocytes % 0.1 % (0-4); Immature Platelets 13.7 % (1.1-6.1); Lymphocytes # 1.6 K/mcL (0.6-4.6); Lymphocytes % 22.6 %; Mean Corpuscular HGB Conc 34.4 g/dL (31.6-35.5); Mean Corpuscular Hemoglobin 32.2 pg (28.0-33.3); Mean Corpuscular Volume 93.8 fL (83.0-100.0); Mean Platelet Volume 11.9 fL (9.4-12.4); Monocytes # 0.7 K/mcL (0.0-1.3); Monocytes % 9.9 %; Neutrophils # 4.3 K/mcL (1.6-8.9); Platelet Count 114 K/mcL (140-400); Red Blood Count 5.12 M/mcL (4.19-5.50); Red Cell Distribution Width 12.6 % (11.5-14.5); Segmented Neutrophils % 62.6 %; White Blood Count 6.9 K/mcL (4.3-11.1)
[2020-03-31] MEDS ORDERED: Ondansetron 4 MG/2 ML VIAL IVP STA (07:45)
[2020-03-31] MEDS ORDERED: 0.9 % Sodium Chloride 1,000 ML IVC STA (07:45)
[2020-03-31 07:51] LABS: Alanine Aminotransferase 36 Units/L (7-52); Albumin 3.4 g/dL (3.5-5.7); Albumin/Globulin Ratio 1.2 (1.1-2.2); Alkaline Phosphatase 153 Units/L (34-104); Aspartate Amino Transferase 35 Units/L (13-39); BUN/Creatinine Ratio 19 (6-26); Bilirubin,Direct 0.1 mg/dL (0.0-0.2); Bilirubin,Indirect 0.4 mg/dL (0.0-1.0); Bilirubin,Total 0.5 mg/dL (0.3-1.0); Blood Urea Nitrogen 18 mg/dL (6-20); Calcium 8.7 mg/dL (8.6-10.3); Carbon Dioxide 26 mEq/L (23-29); Chloride 102 mEq/L (98-107); Globulin 2.8 g/dL (2.4-3.5); Glucose 341 mg/dL (70-105); Magnesium 1.8 mg/dL (1.6-2.6); Osmolality,Calculated 293 (280-300); Potassium 3.8 mEq/L (3.5-5.1); Sodium 134 mEq/L (136-145); Total Protein 6.2 g/dL (6.4-8.9); Troponin I 0.12 ng/mL (< 0.04); eGFR For African Americans > 60 (> 60); eGFR For Non-African Americans > 60 (> 60)
[2020-03-31] MEDS ORDERED: Aspirin 81 MG TAB.CHEW PO STA (07:55)
[2020-03-31] MEDS ORDERED: Nitroglycerin 0.4 MG TAB.SUBL SL PRN (07:55)
[2020-03-31] MEDS ORDERED: *HR* Heparin 5,000 UNIT/ML VIAL IVP ONE (08:49)
[2020-03-31] MEDS ORDERED: *HR* Heparin 5,000 UNIT/ML VIAL IVP PRN (08:49)
[2020-03-31] MEDS ORDERED: Naloxone 0.4 MG/ML INJ IVP PRN (08:49)
[2020-03-31] MEDS ORDERED: Ondansetron 4 MG/2 ML VIAL IVP PRN (08:49)
[2020-03-31] MEDS ORDERED: D5% in Water 1,000 ML IVC PRN (08:51)
[2020-03-31] MEDS ORDERED: *HR* Dextrose 50 % in Water (Vial) 50 ML VIAL IVP PRN (08:51)
[2020-03-31] MEDS ORDERED: Dextrose Gel 15 GM/37.5 ML TUBE PO PRN ×2 (08:51)
[2020-03-31] MEDS: Heparin 25,000 UNIT/250 ML D5W 25,000 UNIT/250 ML IV.SOLN IVC SCH (09:53)
[2020-03-31] MEDS: 0.9 % Sodium Chloride 1,000 ML IVC SCH (10:00)
[2020-03-31] MEDS: Insulin DETEMIR 100 UNIT/ML X5UNITS SQ SCH (10:00)
[2020-03-31 10:24] LABS: INR 1.1; Prothrombin Time 12.5 Seconds (9.4-12.1)
[2020-03-31 10:25] LABS: Heparin anti-factor XA UFH < 0.04 IU/mL (0.30-0.70)
[2020-03-31] MEDS ORDERED: *HR* Labetalol 20 MG/4 ML SYRINGE IVP PRN (11:07)
[2020-03-31] MEDS ORDERED: Isovue-370 500 ML BOTTLE IVP ONE (11:08)
[2020-03-31] MEDS: Insulin LISPRO 300 UNITS/3 ML VIAL SQ SCH ×2 (12:03→17:16)
[2020-03-31] MEDS: *HR* Heparin 5,000 UNIT/ML VIAL IVP PRN (17:31)
[2020-04-01] MEDS: *HR* Heparin 5,000 UNIT/ML VIAL IVP PRN (00:02)
[2020-04-01] MEDS: Insulin LISPRO 300 UNITS/3 ML VIAL SQ SCH ×3 (00:14→11:20)
[2020-04-01] MEDS: Heparin 25,000 UNIT/250 ML D5W 25,000 UNIT/250 ML IV.SOLN IVC SCH (04:31)
[2020-04-01] MEDS ORDERED: *HR* HYDROcodone/Acet 10/325 mg TABLET PO ONE (04:57)
[2020-04-01 06:57] LABS: Basophils # 0.1 K/mcL (0.0-0.2); Basophils % 0.9 %; Eosinophils # 0.3 K/mcL (0.0-0.6); Eosinophils % 6.2 %; Hematocrit 46.2 % (37.5-50.1); Hemoglobin 15.9 g/dL (12.9-16.9); Immature Granulocytes % 0.2 % (0-4); Lymphocytes # 1.3 K/mcL (0.6-4.6); Lymphocytes % 23.5 %; Mean Corpuscular HGB Conc 34.4 g/dL (31.6-35.5); Mean Corpuscular Hemoglobin 32.4 pg (28.0-33.3); Mean Corpuscular Volume 94.1 fL (83.0-100.0); Mean Platelet Volume 11.8 fL (9.4-12.4); Monocytes # 0.5 K/mcL (0.0-1.3); Monocytes % 9.5 %; Neutrophils # 3.3 K/mcL (1.6-8.9); Red Blood Count 4.91 M/mcL (4.19-5.50); Red Cell Distribution Width 12.4 % (11.5-14.5); Segmented Neutrophils % 59.7 %; White Blood Count 5.5 K/mcL (4.3-11.1)
[2020-04-01 07:05] LABS: Platelet Count 94 K/mcL (140-400)
[2020-04-01 07:17] LABS: BUN/Creatinine Ratio 14 (6-26); Blood Urea Nitrogen 12 mg/dL (6-20); Calcium 8.3 mg/dL (8.6-10.3); Carbon Dioxide 27 mEq/L (23-29); Chloride 103 mEq/L (98-107); Chol/HDL Ratio 5.3 (0-4.9); Cholesterol 148 mg/dL (< 200); Glucose 249 mg/dL (70-105); HDL Cholesterol 28 mg/dL (40-59); LDL Cholesterol,Calculated 85 mg/dL (< 100); Magnesium 1.7 mg/dL (1.6-2.6); Osmolality,Calculated 290 (280-300); Potassium 3.5 mEq/L (3.5-5.1); Sodium 136 mEq/L (136-145); Triglycerides 175 mg/dL (< 150); eGFR For African Americans > 60 (> 60); eGFR For Non-African Americans > 60 (> 60)
[2020-04-01] MEDS ORDERED: Perflutren Lipid Microsphere 1.3 ML in 0.9 % Sodium Chloride 8.7 ML IVP ONE (08:17)
[2020-04-01] MEDS ORDERED: Regadenoson 0.4 MG/5 ML SYRINGE IVP ONE (08:28)
[2020-04-01] MEDS: 0.9 % Sodium Chloride 1,000 ML IVC SCH (09:45)
[2020-04-01] MEDS ORDERED: Ammonium Lactate 30 APPL/225 GM BOTTLE TP PRN (11:04)
[2020-04-01] MEDS ORDERED: *HR* HYDROcodone/Acet 10/325 mg TABLET PO PRN (11:04)
[2020-04-01] MEDS: Insulin DETEMIR 100 UNIT/ML X5UNITS SQ SCH (11:21)
[2020-04-01 15:47] VITALS: BP 160/91
[2020-04-01] MEDS ORDERED: Insulin LISPRO 300 UNITS/3 ML VIAL SQ SCH (16:30)
[2020-04-01] MEDS ORDERED: *HR* Heparin 5,000 UNIT/ML VIAL SQ SCH (18:00)
[2020-04-02] MEDS ORDERED: Multivit/Ca/Min/Fe/FA 1 TAB TABLET PO SCH (09:00)
[2020-04-02] MEDS ORDERED: FLUoxetine 20 MG CAPSULE PO SCH (09:00)
[2020-04-02] MEDS ORDERED: Loratadine 10 MG TABLET PO SCH (09:00)
[2020-04-02] MEDS ORDERED: Aspirin Enteric Coated 81 MG Tablet PO SCH (09:00)
[2020-04-02] MEDS ORDERED: Ascorbic Acid 500 MG TABLET PO SCH (09:00)
== END 2020-04-01 16:58 | disposition left against medical advice (07) ==
LOC: EMEROOARM 06:37 → 3BNU 06:37
PROVIDERS: ADMIT Internal Medicine; ATTEND Internal Medicine